=== PATIENT | female | born 1965 | race Caucasian/White ===

== ENCOUNTER → 2021-03-01 08:03 | Outpatient (BNVA) | payer MEDICAID, SELFPAY | PROVIDERS: PCP Internal Medicine; Visit Provider Nurse Practitioner Family | DX: M79.18 Myalgia, other site (principal); M54.16 Radiculopathy, lumbar region; M54.2 Cervicalgia | CPT/HCPCS: 99202 ==

== ENCOUNTER → 2021-04-04 11:14 | Outpatient (BNVA) | payer MEDICAID, SELFPAY | PROVIDERS: PCP Internal Medicine; Visit Provider Nurse Practitioner Family | DX: M54.2 Cervicalgia (principal); M53.3 Sacrococcygeal disorders, not elsewhere classified | CPT/HCPCS: 99212 ==

== ENCOUNTER 2021-05-30 06:13 | Outpatient (REF) | payer MEDICAID, SELFPAY ==
--- NOTE | ~2021-05-30 | FL_ITS ---
EXAMINATION: XR FLUOROSCOPY WITH IMAGES CLINICAL INFORMATION: M53.3 - Sacrococcygeal disorders, not elsewhere classified COMPARISON: None. TECHNIQUE: Fluoroscopy performed by Felisa Guerrero NP. Fluoroscopy time: 0.1 minutes DAP: 134 Gycm2 Images: 1 FINDINGS: There is a needle overlying the lower left sacroiliac joint. There is contrast in the overlying soft tissues and likely some early intra-articular contrast. No vascular communication. FL/FL guidance in treatment room IMPRESSION: Fluoroscopy for pain management procedure.
== END 2021-05-30 06:14 | disposition home or self-care (01) ==
LOC: HO.RADIR 06:13
PROVIDERS: Visit Provider Anesthesiology
DX: M79.18 Myalgia, other site (principal); M54.16 Radiculopathy, lumbar region; M54.2 Cervicalgia; M53.3 Sacrococcygeal disorders, not elsewhere classified
CPT/HCPCS: 27096; J3300; Q9967

== ENCOUNTER → 2021-07-12 13:23 | Outpatient (BNVA) | payer MEDICAID, SELFPAY | PROVIDERS: PCP Internal Medicine; Visit Provider Anesthesiology ==

== ENCOUNTER 2021-09-29 08:28 | Day surgery (SDC) | payer MEDICAID, SELFPAY ==
[2021-09-25 12:16] VITALS: BMI 30.2
--- NOTE | 2021-09-28 10:14 | HO.ANESPROP2 ---
Documented by User: Matilde Burris NP 09/28/21 10:15 HPI - Anesthesia Eval Consult details Narrative: 55yo F for Left Sacroiliac Joint Innervation Injection PMFSH Active Problems Active Problems: All Active Problems (Updated 09/25/21 @ 12:20 by Claudia Covarrubias, MAG) Spondylosis of cervical spine with radiculopathy (Acute) Myofascial pain (Acute) Left lumbar radiculopathy (Acute) Cervicalgia (Acute) Sacroiliac joint pain (Acute) Sacroiliitis (Acute) Past Medical History Medical History Anxiety Arthritis Asthma Depression Elevated cholesterol HTN (hypertension) Hx of breast cancer Hypothyroid Insomnia Low back pain Sacroiliitis Surgical History Surgical History History of lumpectomy of right breast Hx of hysterectomy Social History Social History Patient Tobacco Use Status: Never used Tobacco Are you DNR?: No Advance Directives: No Advance Directives Information Provided: Yes Advance Directives on File: No Patient : No Meds Allergies Allergy/AdvReac Type Severity Reaction Status Date / Time erythromycin base AdvReac Severe hives, Verified 09/29/21 08:38 stomach pain Home Medications Medication Instructions Recorded Confirmed Last Taken Type atorvastatin 20 mg tablet 20 mg PO BEDTIME 03/01/21 09/25/21 Unknown History baclofen 10 mg tablet 10 mg PO DAILY 03/01/21 09/25/21 Unknown History bupropion HCl 200 mg tablet,12 hr 200 mg PO DAILY 03/01/21 09/25/21 09/29/21 07:00 History sustained-release desvenlafaxine succinate 100 mg 100 mg PO DAILY 03/01/21 09/25/21 09/29/21 07:00 History tablet,extended release 24 hr (Pristiq) gabapentin 300 mg capsule 300 mg PO TID 03/01/21 09/25/21 Unknown History ibuprofen 800 mg tablet 800 mg PO BID 03/01/21 09/29/21 09/27/21 History losartan 50 mg tablet 50 mg PO DAILY 03/01/21 09/25/21 Unknown History trazodone 100 mg tablet 100 mg PO BEDTIME PRN 03/01/21 09/25/21 Unknown History albuterol sulfate 90 mcg/actuation INHALATION 09/25/21 Unknown History aerosol inhaler fluticasone furoate 200 1 puff INHALATION DAILY 09/25/21 09/25/21 Unknown History mcg-vilanterol 25 mcg/dose inhalation powder (Breo Ellipta) levothyroxine 175 mcg tablet 1 tab PO DAILY 09/25/21 09/25/21 Unknown History Exam Exam Date and Time: September 28, 2021 1014 Height,Weight and Vital Signs: Height 5 ft 1 in Weight 72.575 kg Assessment and Plan Assessment Anesthesia Assessment: Chart Reviewed Documented by User: Marianna Valdez MD 09/29/21 09:06 [facility], [facility] Past Medical History Medical History Anxiety Arthritis Asthma Depression Elevated cholesterol HTN (hypertension) Hx of breast cancer Hypothyroid Insomnia Low back pain Sacroiliitis Surgical History Surgical History History of lumpectomy of right breast Hx of hysterectomy History of Problems with Anesthesia: No Social History Social History Patient Tobacco Use Status: Never used Tobacco Are you DNR?: No Advance Directives: No Advance Directives Information Provided: Yes Advance Directives on File: No Patient : No Meds Allergies Allergy/AdvReac Type Severity Reaction Status Date / Time erythromycin base AdvReac Severe hives, Verified 09/29/21 08:38 stomach pain Home Medications Medication Instructions Recorded Confirmed Last Taken Type atorvastatin 20 mg tablet 20 mg PO BEDTIME 03/01/21 09/25/21 Unknown History baclofen 10 mg tablet 10 mg PO DAILY 03/01/21 09/25/21 Unknown History bupropion HCl 200 mg tablet,12 hr 200 mg PO DAILY 03/01/21 09/25/21 09/29/21 07:00 History sustained-release desvenlafaxine succinate 100 mg 100 mg PO DAILY 03/01/21 09/25/21 09/29/21 07:00 History tablet,extended release 24 hr (Pristiq) gabapentin 300 mg capsule 300 mg PO TID 03/01/21 09/25/21 Unknown History ibuprofen 800 mg tablet 800 mg PO BID 03/01/21 09/29/21 09/27/21 History losartan 50 mg tablet 50 mg PO DAILY 03/01/21 09/25/21 Unknown History trazodone 100 mg tablet 100 mg PO BEDTIME PRN 03/01/21 09/25/21 Unknown History albuterol sulfate 90 mcg/actuation INHALATION 09/25/21 Unknown History aerosol inhaler fluticasone furoate 200 1 puff INHALATION DAILY 09/25/21 09/25/21 Unknown History mcg-vilanterol 25 mcg/dose inhalation powder (Breo Ellipta) levothyroxine 175 mcg tablet 1 tab PO DAILY 09/25/21 09/25/21 Unknown History Exam Airway Mallampati Class: II TM Dist: >3cm Neck ROM: Full Loose/Missing/Broken Teeth: No Heart: RRR Lungs: CTA Assessment and Plan Assessment Anesthesia Assessment: Anesthesia Plan Discussed Final Anesthetic Review History of Problems with Anesthesia: No NPO: Yes ASA Class: II Final Preanesthetic Review: Meds/Allgs Chart Reviewed, Consent Obtained/Reviewed and Anes Risks/Benef Reviewed Patient Risk: Low Procedure Risk: Low Anesthetic Plan Anesthetic Plan: MAC: Disposition: Standard PACU
--- NOTE | ~2021-09-29 | FL_ITS ---
EXAMINATION: XR FLUOROSCOPY WITH IMAGES CLINICAL INFORMATION: Sacroiliac joint injections COMPARISON: 05/30/2021 TECHNIQUE: Fluoroscopy performed by Dr. Viraj Cagle. Fluoroscopy time: 0.3 minutes DAP: 3.13 Gycm2 Images: 1 FINDINGS: There are multiple needles identified overlying the sacrum. FL/FL guidance in OR IMPRESSION: Fluoroscopic guidance for intervention at the sacroiliac joint. Please refer to procedural report for further information.
[2021-09-29 08:49] VITALS: BP 139/85; PULSE 77; RESP 16; TEMP 37.1; O2SAT 97
--- NOTE | 2021-09-29 08:51 | PC.NURSE ---
Patient arrived with one stud earring in right ear. Per patient this earring can not be removed. Patient educated on risks of going into OR with metal on her body. Patient aware and agrees to proceed with procedure. OR nurse made aware.
[2021-09-29] MEDS: Lactated Ringers 1,000 ML 100 ML IVCONT (08:59)
--- NOTE | 2021-09-29 09:34 | MHC.SHP ---
Pre-Procedural Eval Section A Date of Service: 09/29/21 The patient is an INPATIENT: No Changes since office visit: Yes Patient answered all questions The History & Physical has been completed within 30 days and I have reviewed it.: No Section B Chief Complaint: Sacroiliitis Details of Present Illness: As above Relevant Family History (Specify if Yes): No Relevant Social History: None Present Medications: see Short Stay Collaborative assessment Medical History: No relevant PMH History of Previous Operations: No relevant previous surgery Allergies: Allergies Allergy/AdvReac Type Severity Reaction Status Date / Time erythromycin base AdvReac Severe hives, Verified 09/29/21 08:38 stomach pain Review of Systems Sugical H&P ROS: Negative: Constitution, Cardiovascular, Respiratory, Neurological, Psychiatric, Hem-Onc, Allergic/Immunologic, Gastrointestinal, Genitourinary, Musculoskeletal, Integumentary, Endocrine and Eyes/Ears/Nose/Throat Exam Surgical H&P Exam: Normal: HEENT, Normal: Heart, Normal: Lungs, Normal: Extremities, Normal: Abdomen, Normal: Skin and Normal: Neurological Plan Diagnosis/Plan: Unchanged I have reviewed the history and physical and performed a pertinent physical examination on my patient. No changes have occurred unless specified.
--- NOTE | 2021-09-29 09:41 | W.PM.OPN ---
Operative Note Operative Note Date of Service: 09/29/21 Narrative: iLza is very pleasant 55 years old female who came today into the operating room diagnostic left sacroiliac joint innervation injection. ? After obtaining informed consent patient was brought to the operating room, she was positioned prone on the OR table, [employer]hes[employer] monitors were applied and patient was sedated. ?? Time-out was performed delineating correct site, side, the nature of the procedure, patient's allergy, preoperative antibiotic.? All operating room staff was participating in OR time-out procedure. Patient's lower back was prepped with ChloraPrep and draped with utility drapes. C-arm was brought over the operating field and sq picture of patient's pelvis, sacrum and left iliac bone were demonstrated on the screen. The points of interest were delineated as connection of the superior articular process on the S1 on the left with sacral alae as well as lowest point of the sacroiliac joint on the left on the medial sacral side. The other point of interest were delineated as all the points in between the above-mentioned 2 points. The projections of the points of interest to the skin were was injected with small amount of lidocaine 2% mixed with bupivacaine 0.5%. After that 4 22 gauge 3-1/2 inch needles were sequentially driven to cover all the points of interest as above. When needles gently contacted the bone small amount of the bupivacaine 0.5% no more than 1 cc was injected into each needle position. Upon completion of the injections needles were removed sterile Band-Aids were applied. Patient was tolerated procedure well she was taking outside of the operating room to recovery room. She recovered uneventfully.
--- NOTE | 2021-09-29 10:08 | P.BOP_ITS ---
Brief Operative Note Date of Service: 09/29/21 Pre-op diagnosis: Sacroiliitis Post-op diagnosis: same Procedure: Diagnostic sacroiliac joint innervation injection left Implants: In a Surgeon: Viraj Cagle MD Anesthesia: MAC Was an Porcelain Slusher used for this Procedure?: No Estimated blood loss (mL): 0 Pathology: none sent Condition: stable Disposition: PACU
[2021-09-29 10:11] VITALS: BP 98/68; PULSE 73; RESP 18; TEMP 36.3; O2SAT 100
[2021-09-29 10:25] VITALS: BP 110/77; PULSE 73; RESP 18; O2SAT 96
[2021-09-29 10:40] VITALS: BP 132/85; PULSE 69; RESP 16; TEMP 36.3; O2SAT 100
[2021-09-29 10:52] VITALS: BP 141/84; PULSE 69; RESP 16; O2SAT 100
== END 2021-09-29 11:18 | disposition home or self-care (01) ==
PROVIDERS: PCP Internal Medicine; Visit Provider Anesthesiology
PROC: (CPT 27096; principal; 2021-09-29 10:00)
DX: M46.1 Sacroiliitis, not elsewhere classified (principal); M53.3 Sacrococcygeal disorders, not elsewhere classified
CPT/HCPCS: 27096; J2250; J3010; J3300

== ENCOUNTER → 2021-10-04 13:25 | Outpatient (BNVA) | payer MEDICAID, SELFPAY | PROVIDERS: PCP Internal Medicine; Visit Provider Anesthesiology ==

== ENCOUNTER 2021-11-29 10:00 | Outpatient (RCR) | payer OTHER, SELFPAY ==
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
--- NOTE | 2021-10-04 23:46 | HO.TMSDAILY2 ---
TMS Daily Progress Note Daily TMS Progress Note Date of Service: 10/04/21 Week #: 1 Treatment #(11-26): 1 PHQ-9 Pre-Treatment (11-23): 21 PHQ-9 Most Recent (11-23): 21 Reviewed: TMS Mapping/Re-mapping completed Verification: I have reviewed the TMS Financial Services Professional Note and agree with the contents. The patient remains a candidate to continue TMS treatment per protocol. Assessment and Plan (1) Major depressive disorder, recurrent severe without psychotic features: Status: Acute initial mapping completed needed inc MT
--- NOTE | 2021-10-09 22:36 | P.PNPS_ITS ---
TMS Daily Progress Note Daily TMS Progress Note Date of Service: 10/06/21 Week #: 1 Treatment #(11-26): 3 PHQ-9 Pre-Treatment (11-23): 21 PHQ-9 Most Recent (11-23): 21 Reviewed: TMS Tech Note Reviewed Verification: I have reviewed the TMS Jewelry Finisher Note and agree with the contents. The patient remains a candidate to continue TMS treatment per pro tocol.
--- NOTE | 2021-10-09 22:56 | HO.TMSDAILY2 ---
TMS Daily Progress Note Daily TMS Progress Note Date of Service: 10/09/21 Week #: 1 Treatment #(11-26): 4 PHQ-9 Pre-Treatment (11-23): 21 PHQ-9 Most Recent (11-23): 21 Reviewed: TMS Tech Note Reviewed Verification: I have reviewed the TMS Software Tester Note and agree with the contents. The patient remains a candidate to continue TMS treatment per protocol.
--- NOTE | 2021-10-10 22:32 | HO.TMSDAILY2 ---
TMS Daily Progress Note Daily TMS Progress Note Date of Service: 10/10/21 Week #: 1 Treatment #(11-26): 5 PHQ-9 Pre-Treatment (11-23): 21 PHQ-9 Most Recent (11-23): 21 Reviewed: TMS Tech Note Reviewed Verification: I have reviewed the TMS Melt House Centrifugal Operator Note and agree with the contents. The patient remains a candidate to continue TMS treatment per protocol.
--- NOTE | 2021-10-11 23:04 | HO.TMSDAILY2 ---
TMS Daily Progress Note Daily TMS Progress Note Date of Service: 10/11/21 Week #: 2 Treatment #(11-26): 6 PHQ-9 Pre-Treatment (11-23): 21 PHQ-9 Most Recent (11-23): 21 Reviewed: TMS Tech Note Reviewed Verification: I have reviewed the TMS Engraver Flatware Note and agree with the contents. The patient remains a candidate to continue TMS treatment per protocol.
--- NOTE | 2021-10-12 23:06 | P.PNPS_ITS ---
TMS Daily Progress Note Daily TMS Progress Note Date of Service: 10/12/21 Week #: 2 Treatment #(11-26): 7 PHQ-9 Pre-Treatment (11-23): 21 PHQ-9 Most Recent (11-23): 21 Reviewed: TMS Mapping/Re-mapping completed Verification: I have reviewed the TMS Social Media Coordinator Note and agree with the contents. The patient remains a candidate to continue TMS treatment per protocol. Assessment and Plan (1) Major depressive disorder, recurrent severe without psychotic features: Status: Acute remapping and mt completed much more tolerable
--- NOTE | 2021-10-16 17:17 | HO.TMSDAILY2 ---
TMS Daily Progress Note Daily TMS Progress Note Date of Service: 10/13/21 Week #: 2 Treatment #(11-26): 8 PHQ-9 Pre-Treatment (11-23): 21 PHQ-9 Most Recent (11-23): 21 Reviewed: TMS Tech Note Reviewed Verification: I have reviewed the TMS Career Coordinator Note and agree with the contents. The patient remains a candidate to continue TMS treatment per protocol. Assessment and Plan (1) Major depressive disorder, recurrent severe without psychotic features: Status: Acute cont post remap
--- NOTE | 2021-10-16 17:19 | HO.TMSDAILY2 ---
TMS Daily Progress Note Daily TMS Progress Note Date of Service: 10/16/21 Week #: 2 Treatment #(11-26): 10 PHQ-9 Pre-Treatment (11-23): 21 PHQ-9 Most Recent (11-23): 21 Reviewed: TMS Tech Note Reviewed Verification: I have reviewed the TMS Strategic Alliances Manager Note and agree with the contents. The patient remains a candidate to continue TMS treatment per protocol. Assessment and Plan (1) Major depressive disorder, recurrent severe without psychotic features: Status: Acute cont post remap
--- NOTE | 2021-10-17 17:05 | P.PNPS_ITS ---
TMS Daily Progress Note Daily TMS Progress Note Date of Service: 10/17/21 Week #: 3 Treatment #(11-26): 11 PHQ-9 Pre-Treatment (11-23): 21 PHQ-9 Most Recent (11-23): 21 Reviewed: TMS Tech Note Reviewed Verification: I have reviewed the TMS Lead Level Designer Note and agree with the contents. The patient remains a candidate to continue TMS treatment per pr otocol. Assessment and Plan (1) Major depressive disorder, recurrent severe without psychotic features: Status: Acute continue tms evaluate response side effects
--- NOTE | 2021-10-18 23:07 | HO.TMSDAILY2 ---
TMS Daily Progress Note Daily TMS Progress Note Date of Service: 10/18/21 Week #: 3 Treatment #(11-26): 11 PHQ-9 Pre-Treatment (11-23): 21 PHQ-9 Most Recent (11-23): 21 Reviewed: TMS Tech Note Reviewed Verification: I have reviewed the TMS Salesperson Men'S Furnishings Note and agree with the contents. The patient remains a candidate to continue TMS treatment per protocol. Assessment and Plan (1) Major depressive disorder, recurrent severe without psychotic features: Status: Acute continue tms evaluate response side effects
--- NOTE | 2021-10-19 22:42 | P.PNPS_ITS ---
TMS Daily Progress Note Daily TMS Progress Note Date of Service: 10/19/21 Week #: 3 Treatment #(11-26): 12 PHQ-9 Pre-Treatment (11-23): 21 PHQ-9 Most Recent (11-23): 21 Reviewed: TMS Tech Note Reviewed Verification: I have reviewed the TMS Software Intern Note and agree with the contents. The patient remains a candidate to continue TMS treatment per pr otocol. Assessment and Plan (1) Major depressive disorder, recurrent severe without psychotic features: Status: Acute continue tms evaluate response side effects
--- NOTE | 2021-10-23 22:43 | P.PNPS_ITS ---
TMS Daily Progress Note Daily TMS Progress Note Date of Service: 10/23/21 Week #: 3 Treatment #(11-26): 13 PHQ-9 Pre-Treatment (11-23): 21 PHQ-9 Most Recent (11-23): 21 Reviewed: TMS Tech Note Reviewed Verification: I have reviewed the TMS Medical Secretary Receptionist Note and agree with the contents. The patient remains a candidate to continue TMS treatment per pr otocol.
--- NOTE | 2021-10-24 22:16 | P.PNPS_ITS ---
TMS Daily Progress Note Daily TMS Progress Note Date of Service: 10/25/21 Week #: 3 Treatment #(11-26): 14 PHQ-9 Pre-Treatment (11-23): 21 PHQ-9 Most Recent (11-23): 21 Reviewed: TMS Tech Note Reviewed Verification: I have reviewed the TMS Hoist Operator Note and agree with the contents. The patient remains a candidate to continue TMS treatment per pr otocol. Assessment and Plan (1) Major depressive disorder, recurrent severe without psychotic features: Status: Acute continue tms evaluate response check for side effects
--- NOTE | 2021-10-26 22:07 | HO.TMSDAILY2 ---
TMS Daily Progress Note Daily TMS Progress Note Date of Service: 10/26/21 Week #: 4 Treatment #(11-26): 16 PHQ-9 Pre-Treatment (11-23): 21 PHQ-9 Most Recent (11-23): 21 Reviewed: TMS Tech Note Reviewed Verification: I have reviewed the TMS Flatbed Company Driver Note and agree with the contents. The patient remains a candidate to continue TMS treatment per protocol.
--- NOTE | 2021-10-31 23:56 | HO.TMSDAILY2 ---
TMS Daily Progress Note Daily TMS Progress Note Date of Service: 10/30/21 Week #: 4 Treatment #(11-26): 17 PHQ-9 Pre-Treatment (11-23): 21 PHQ-9 Most Recent (11-23): 21 Reviewed: TMS Tech Note Reviewed Verification: I have reviewed the TMS Gas Cutting Machine Operator Note and agree with the contents. The patient remains a candidate to continue TMS treatment per protocol.
--- NOTE | 2021-11-02 18:00 | P.PNPS_ITS ---
TMS Daily Progress Note Daily TMS Progress Note Date of Service: 11/02/21 Week #: 4 Treatment #(11-26): 19 PHQ-9 Pre-Treatment (11-23): 21 PHQ-9 Most Recent (11-23): 21 Reviewed: TMS Tech Note Reviewed Verification: I have reviewed the TMS Under Sheriff Note and agree with the contents. The patient remains a candidate to continue TMS treatment per pr otocol.
--- NOTE | 2021-11-06 21:49 | P.PNPS_ITS ---
TMS Daily Progress Note Daily TMS Progress Note Date of Service: 11/06/21 Week #: 4 Treatment #(11-26): 20 PHQ-9 Pre-Treatment (11-23): 21 PHQ-9 Most Recent (11-23): 21 Reviewed: TMS Tech Note Reviewed Verification: I have reviewed the TMS Operating Room Technologist Note and agree with the contents. The patient remains a candidate to continue TMS treatment per pr otocol. Assessment and Plan (1) Major depressive disorder, recurrent severe without psychotic features: Status: Acute continue tms evaluate response consider remapping again if no change
--- NOTE | 2021-11-07 21:50 | HO.TMSDAILY2 ---
TMS Daily Progress Note Daily TMS Progress Note Date of Service: 11/07/21 Week #: 5 Treatment #(11-26): 21 PHQ-9 Pre-Treatment (11-23): 21 PHQ-9 Most Recent (11-23): 21 Reviewed: TMS Tech Note Reviewed Verification: I have reviewed the TMS Gyroscopic Instrument Mechanic Note and agree with the contents. The patient remains a candidate to continue TMS treatment per protocol. Assessment and Plan (1) Major depressive disorder, recurrent severe without psychotic features: Status: Acute continue tms evaluate response consider remapping again if no change
--- NOTE | 2021-11-08 21:52 | P.PNPS_ITS ---
TMS Daily Progress Note Daily TMS Progress Note Date of Service: 11/08/21 Week #: 5 Treatment #(11-26): 22 PHQ-9 Pre-Treatment (11-23): 21 PHQ-9 Most Recent (11-23): 21 Reviewed: TMS Tech Note Reviewed Verification: I have reviewed the TMS Compression Molding Machine Operator Note and agree with the contents. The patient remains a candidate to continue TMS treatment per pr otocol.
--- NOTE | 2021-11-14 13:57 | P.PNPS_ITS ---
TMS Daily Progress Note Daily TMS Progress Note Date of Service: 11/14/21 Week #: 5 Treatment #(11-26): 25 PHQ-9 Pre-Treatment (11-23): 21 PHQ-9 Most Recent (11-23): 21 Reviewed: TMS Tech Note Reviewed Verification: I have reviewed the TMS Rent And Housing Investigator Note and agree with the contents. The patient remains a candidate to continue TMS treatment per p karli.
--- NOTE | 2021-11-15 13:18 | P.PNPS_ITS ---
TMS Daily Progress Note Daily TMS Progress Note Date of Service: 11/15/21 Week #: 6 Treatment #(11-26): 26 PHQ-9 Pre-Treatment (11-23): 21 PHQ-9 Most Recent (11-23): 21 Reviewed: TMS Tech Note Reviewed Verification: I have reviewed the TMS Drop Board Worker Note and agree with the contents. The patient remains a candidate to continue TMS treatment per p karli.
--- NOTE | 2021-11-16 13:32 | P.PNPS_ITS ---
TMS Daily Progress Note Daily TMS Progress Note Date of Service: 11/16/21 Week #: 6 Treatment #(11-26): 27 PHQ-9 Pre-Treatment (11-23): 21 PHQ-9 Most Recent (11-23): 21 Reviewed: TMS Tech Note Reviewed Verification: I have reviewed the TMS Pointer Machine Operator Note and agree with the contents. The patient remains a candidate to continue TMS treatment per p karli.
--- NOTE | 2021-11-20 16:44 | HO.TMSDAILY2 ---
TMS Daily Progress Note Daily TMS Progress Note Date of Service: 11/20/21 Week #: 6 Treatment #(11-26): 29 PHQ-9 Pre-Treatment (11-23): 21 PHQ-9 Most Recent (11-23): 21 Reviewed: TMS Tech Note Reviewed Verification: I have reviewed the TMS Bunk Assembler Note and agree with the contents. The patient remains a candidate to continue TMS treatment per protocol. Assessment and Plan (1) Major depressive disorder, recurrent severe without psychotic features: Status: Acute continue tms evaluate response consider php referral
--- NOTE | 2021-11-21 11:38 | HO.TMSDAILY2 ---
TMS Daily Progress Note Daily TMS Progress Note Date of Service: 11/17/21 Week #: 6 Treatment #(11-26): 28 PHQ-9 Pre-Treatment (11-23): 21 PHQ-9 Most Recent (11-23): 21 Reviewed: TMS Tech Note Reviewed Verification: I have reviewed the TMS Patient Financial Specialist Note and agree with the contents. The patient remains a candidate to continue TMS treatment per protocol.
--- NOTE | 2021-11-21 22:35 | HO.TMSDAILY2 ---
TMS Daily Progress Note Daily TMS Progress Note Date of Service: 11/21/21 Week #: 6 Treatment #(11-26): 30 PHQ-9 Pre-Treatment (11-23): 21 PHQ-9 Most Recent (11-23): 21 Reviewed: TMS Tech Note Reviewed Verification: I have reviewed the TMS Rock Crusher Operator Note and agree with the contents. The patient remains a candidate to continue TMS treatment per protocol.
--- NOTE | 2021-11-22 22:38 | HO.TMSDAILY2 ---
TMS Daily Progress Note Daily TMS Progress Note Date of Service: 11/22/21 Week #: 7 Treatment #(11-26): 31 PHQ-9 Pre-Treatment (11-23): 21 PHQ-9 Most Recent (11-23): 21 Reviewed: TMS Tech Note Reviewed Verification: I have reviewed the TMS Research Project Manager Note and agree with the contents. The patient remains a candidate to continue TMS treatment per protocol. Assessment and Plan (1) Major depressive disorder, recurrent severe without psychotic features: Status: Acute Plan continue tms evaluate response consider [facility] referral
--- NOTE | 2021-11-23 17:54 | HO.TMSDAILY2 ---
TMS Daily Progress Note Daily TMS Progress Note Date of Service: 11/23/21 Week #: 6 Treatment #(11-26): 31 PHQ-9 Pre-Treatment (11-23): 21 PHQ-9 Most Recent (11-23): 21 Reviewed: TMS Tech Note Reviewed Verification: I have reviewed the TMS Garbage Truck Helper Note and agree with the contents. The patient remains a candidate to continue TMS treatment per protocol.
--- NOTE | 2021-11-27 23:23 | HO.TMSDAILY2 ---
TMS Daily Progress Note Daily TMS Progress Note Date of Service: 11/27/21 Week #: 7 Treatment #(11-26): 33 PHQ-9 Pre-Treatment (11-23): 21 PHQ-9 Most Recent (11-23): 21 Reviewed: TMS Tech Note Reviewed Verification: I have reviewed the TMS Grain Buyer Note and agree with the contents. The patient remains a candidate to continue TMS treatment per protocol. Assessment and Plan (1) Major depressive disorder, recurrent severe without psychotic features: Status: Acute Plan no improvement noted
--- NOTE | 2021-11-28 17:51 | HO.TMSDAILY2 ---
TMS Daily Progress Note Daily TMS Progress Note Date of Service: 11/28/21 Week #: 8 Treatment #(11-26): 35 PHQ-9 Pre-Treatment (11-23): 21 PHQ-9 Most Recent (11-23): 21 Reviewed: TMS Tech Note Reviewed Verification: I have reviewed the TMS Manufacturing Intern Note and agree with the contents. The patient remains a candidate to continue TMS treatment per protocol. Assessment and Plan (1) Major depressive disorder, recurrent severe without psychotic features: Status: Acute Plan consider d/c recommendations
--- NOTE | 2021-11-29 23:18 | HO.TMSDAILY2 ---
TMS Daily Progress Note Daily TMS Progress Note Date of Service: 11/29/21 Week #: 8 Treatment #(11-26): 36 PHQ-9 Pre-Treatment (11-23): 21 PHQ-9 Most Recent (11-23): 21 Reviewed: TMS Tech Note Reviewed Verification: I have reviewed the TMS Elastic Assembler Note and agree with the contents. The patient remains a candidate to continue TMS treatment per protocol. Assessment and Plan (1) Major depressive disorder, recurrent severe without psychotic features: Status: Acute Plan consider d/c recommendations including php ? extend tx
== END 2021-12-01 12:14 | disposition home or self-care (01) ==
LOC: HO.PTMS 10:00
PROVIDERS: Visit Provider Psychiatry & Neurology Psychiatry
DX: F33.2 Major depressive disorder, recurrent severe without psychotic features (principal)
CPT/HCPCS: 90867; 90868; 90869

== ENCOUNTER 2021-12-15 09:59 | Day surgery (SDC) | payer MEDICAID, SELFPAY ==
[2021-12-11 12:59] VITALS: BMI 29.8
--- NOTE | 2021-12-14 13:05 | HO.ANESPROP2 ---
Documented by User: Matilde Burris NP 12/14/21 13:07 HPI - Anesthesia Eval Consult details Narrative: 56yo F for Left S.I. Joint Fusion s/p SI joint injection 09/2021 with TIVA PMFSH Active Problems Active Problems: All Active Problems (Updated 10/04/21 @ 12:59 by Phi Orourke MD) Major depressive disorder, recurrent severe without psychotic features (Acute) Spondylosis of cervical spine with radiculopathy (Acute) Myofascial pain (Acute) Left lumbar radiculopathy (Acute) Cervicalgia (Acute) Sacroiliac joint pain (Acute) Sacroiliitis (Acute) Past Medical History Medical History (Updated 10/04/21 @ 12:59 by Phi Orourke MD) Anxiety Arthritis Asthma Depression Elevated cholesterol HTN (hypertension) Hx of breast cancer Hypothyroid Insomnia Low back pain Major depressive disorder, recurrent severe without psychotic features Sacroiliitis Surgical History Surgical History History of lumpectomy of right breast Hx of hysterectomy History of Problems with Anesthesia: No Social History Social History Patient Tobacco Use Status: Never used Tobacco Use of substances other than those prescribed or required for medical reasons: No Are you DNR?: No Advance Directives: No Advance Directives Information Provided: Yes Advance Directives on File: No Meds Allergies Allergy/AdvReac Type Severity Reaction Status Date / Time erythromycin base AdvReac Severe hives, Verified 12/11/21 12:37 stomach pain Home Medications Medication Instructions Recorded Confirmed Last Taken Type atorvastatin 20 mg tablet 20 mg PO BEDTIME 03/01/21 12/11/21 Unknown History baclofen 10 mg tablet 10 mg PO DAILY 03/01/21 12/11/21 Unknown History bupropion HCl 200 mg tablet,12 hr 200 mg PO DAILY 03/01/21 12/11/21 12/15/21 History sustained-release desvenlafaxine succinate 100 mg 100 mg PO DAILY 03/01/21 12/11/21 09/29/21 07:00 History tablet,extended release 24 hr (Pristiq) gabapentin 300 mg capsule 300 mg PO TID 03/01/21 12/11/21 12/15/21 History ibuprofen 800 mg tablet 800 mg PO BID PRN 03/01/21 12/11/21 09/27/21 History losartan 50 mg tablet 50 mg PO DAILY 03/01/21 12/11/21 Unknown History trazodone 100 mg tablet 100 mg PO BEDTIME PRN 03/01/21 12/11/21 Unknown History albuterol sulfate 90 mcg/actuation 2 inh INHALATION Q4-6H PRN 09/25/21 12/11/21 12/15/21 History aerosol inhaler fluticasone furoate 200 1 puff INHALATION DAILY 09/25/21 12/11/21 12/15/21 History mcg-vilanterol 25 mcg/dose inhalation powder (Breo Ellipta) levothyroxine 175 mcg tablet 1 tab PO DAILY 09/25/21 12/11/21 12/15/21 History Exam Exam Date and Time: December 14, 2021 1305 Height,Weight and Vital Signs: Height 5 ft 1 in Weight 71.668 kg Assessment and Plan Assessment Anesthesia Assessment: Chart Reviewed Final Anesthetic Review History of Problems with Anesthesia: No Documented by User: Mary Birmingham MD 12/15/21 12:10 PMFSH Past Medical History Medical History (Updated 10/04/21 @ 12:59 by Phi Orourke MD) Anxiety Arthritis Asthma Depression Elevated cholesterol HTN (hypertension) Hx of breast cancer Hypothyroid Insomnia Low back pain Major depressive disorder, recurrent severe without psychotic features Sacroiliitis Family History Family history of problems with anesthesia: No Surgical History Surgical History History of lumpectomy of right breast Hx of hysterectomy Social History Social History Patient Tobacco Use Status: Never used Tobacco Use of substances other than those prescribed or required for medical reasons: No Are you DNR?: No Advance Directives: No Advance Directives Information Provided: Yes Advance Directives on File: No Meds Allergies Allergy/AdvReac Type Severity Reaction Status Date / Time erythromycin base AdvReac Severe hives, Verified 12/11/21 12:37 stomach pain Home Medications Medication Instructions Recorded Confirmed Last Taken Type atorvastatin 20 mg tablet 20 mg PO BEDTIME 03/01/21 12/11/21 Unknown History baclofen 10 mg tablet 10 mg PO DAILY 03/01/21 12/11/21 Unknown History bupropion HCl 200 mg tablet,12 hr 200 mg PO DAILY 03/01/21 12/11/21 12/15/21 History sustained-release desvenlafaxine succinate 100 mg 100 mg PO DAILY 03/01/21 12/11/21 09/29/21 07:00 History tablet,extended release 24 hr (Pristiq) gabapentin 300 mg capsule 300 mg PO TID 03/01/21 12/11/21 12/15/21 History ibuprofen 800 mg tablet 800 mg PO BID PRN 03/01/21 12/11/21 09/27/21 History losartan 50 mg tablet 50 mg PO DAILY 03/01/21 12/11/21 Unknown History trazodone 100 mg tablet 100 mg PO BEDTIME PRN 03/01/21 12/11/21 Unknown History albuterol sulfate 90 mcg/actuation 2 inh INHALATION Q4-6H PRN 09/25/21 12/11/21 12/15/21 History aerosol inhaler fluticasone furoate 200 1 puff INHALATION DAILY 09/25/21 12/11/21 12/15/21 History mcg-vilanterol 25 mcg/dose inhalation powder (Breo Ellipta) levothyroxine 175 mcg tablet 1 tab PO DAILY 09/25/21 12/11/21 12/15/21 History Exam Airway Mallampati Class: II TM Dist: >3cm Neck ROM: Full Assessment and Plan Assessment Anesthesia Assessment: Anesthesia Plan Discussed Final Anesthetic Review Family History of Problems with Anesthesia: No NPO: Yes ASA Class: II Final Preanesthetic Review: No Changes in Pt Med Stat, Meds/Allgs Chart Reviewed, Consent Obtained/Reviewed and Anes Risks/Benef Reviewed Patient Risk: Intermediate Procedure Risk: Low Anesthetic Plan Anesthetic Plan: GA Disposition: Standard PACU
[2021-12-15] VITALS (9 sets, daily range): BP systolic 110–146; BP diastolic 67–96; PULSE 71–92; RESP 12–18; TEMP 36.6–36.8; O2SAT 95–98
--- NOTE | ~2021-12-15 | FL_ITS ---
EXAMINATION: XR FLUOROSCOPY WITH IMAGES CLINICAL INFORMATION: Left sacroiliac joint fusion COMPARISON: None. TECHNIQUE: Fluoroscopy performed by Dr. Viraj Cagle. Fluoroscopy time: 0.5 minutes DAP: 8.01 Gycm2 Images: 2 FINDINGS: There is a radiopaque instrument overlying the left sacroiliac joint. FL/FL guidance in OR IMPRESSION: Fluoroscopic guidance over the left sacroiliac joint. Please refer to procedural report for further information.
--- NOTE | 2021-12-15 07:35 | MHC.SHP ---
Pre-Procedural Eval Section A Date of Service: 12/15/21 Changes since office visit: Yes Patient answered all questions The History & Physical has been completed within 30 days and I have reviewed it.: No Section B Chief Complaint: sacroiliitis Details of Present Illness: as above Relevant Family History (Specify if Yes): No Relevant Social History: None Present Medications: see Short Stay Collaborative assessment Medical History: No relevant PMH History of Previous Operations: No relevant previous surgery Allergies: Allergies Allergy/AdvReac Type Severity Reaction Status Date / Time erythromycin base AdvReac Severe hives, Verified 12/11/21 12:37 stomach pain Review of Systems Sugical H&P ROS: Negative: Constitution, Cardiovascular, Respiratory, Neurological, Psychiatric, Hem-Onc, Allergic/Immunologic, Gastrointestinal, Genitourinary, Musculoskeletal, Integumentary, Endocrine and Eyes/Ears/Nose/Throat Exam Surgical H&P Exam: Normal: HEENT, Normal: Heart, Normal: Lungs, Normal: Extremities, Normal: Abdomen, Normal: Skin and Normal: Neurological Plan Diagnosis/Plan: Unchanged I have reviewed the history and physical and performed a pertinent physical examination on my patient. No changes have occurred unless specified.
--- NOTE | 2021-12-15 07:47 | P.OP_ITS ---
Operative Note Operative Note Date of Service: 12/15/21 Narrative: ??Sacroiliac joint stabilisation procedure. posterior sacroiliac joint fusion using LINQ SI joint stabilization system with C-arm fluoroscopy for guidance.? Ms Dover is very pleasant 56 years old female who is suffering left sacroiliac joint insufficiency and sacroiliitis on the left.??She failed conservative management of sacroiliitis.??She came today to receive the procedures as above.??The risks and benefits including bleeding, infection, peripheral nerve damage, failure to reduce the pain were explained to the patient.?The patient came to the operating room, she was positioned on the stretcher supine, [place] [employer] monitors were applied and patient was administered with general endotracheal anesthesia.??After that the patient was transferred on operating table and positioned prone with all pressure points protected. The patient was administered 2 grams cefazolin IV approximately 25 minutes before the start of the procedure.? Time-out was performed delineating correct site, side, and nature of the procedure, name and date of of the patient, risk of fire, need for DVT prophylaxis, need for antibiotics.? The patient was transferred?on?radiolucent table. All pressure points were protected again. Lower back and bilateral buttocks were prepped with ChloraPrep and draped with full body drape. 3. 5 cm posterior midline incision over the projection of the Left S1 foramina was performed.? Soft tissue dissection done to sacroiliac joint and thorough blind dissection was made in the direction of the left?sacroiliac joint.? K-wire pin was inserted into the sacroiliac joint and guiding instrument was inserted into the joint using the pin as a guide and advanced into the joint on the intermittent anterior posterior and lateral views.??? After that pin was removed and rasping device was inserted to broach and rasp sacroiliac joint.? Once joint was prepared and inserted the structural allograft implant was hammered into the joint . It was packed with ortho biologics in and around the implant to provide better opportunity? for bones fusion.? The position of the allograft was confirmed radiographically.? The wound was irrigated, hemostasis was achieved wound was closed in 2 layers.? Surgery was concluded by performing standard suture closing technique:? 0 Polysorb suture was used to close the wound and nylon 3-0 suture was used to approximate the levels of the skin.? Skin glue was applied to the skin edges.? Sterile?dressing was applied with bacitracin ointment .? The patient tolerated procedure well she was awaken and taken outside of the operating room to PACU where she recovered uneventfully. She went home without immediate complications. She will be wearing an SI joint fixation belt for the 10 weeks after the procedure.
[2021-12-15] MEDS: Lactated Ringers 1,000 ML 100 ML IVCONT (11:44)
--- NOTE | 2021-12-15 13:53 | PM.OP ---
Brief Operative Note Date of Service: 12/15/21 Pre-op diagnosis: Sacroiliitis Post-op diagnosis: same Procedure: ??Sacroiliac joint stabilisation procedure. posterior sacroiliac joint fusion using LINQ SI joint stabilization system with C-arm fluoroscopy for guidance. Implants: Lyophilized cadaver bone covered with biological Gell stimulating bone growth. Surgeon: Viraj Cagle MD Anesthesia: GETA Was an Sap Security Consultant used for this Procedure?: No Estimated blood loss (mL): 30 IV fluids (mL): 1,000 Pathology: none sent Condition: stable Disposition: PACU
[2021-12-15] MEDS: fentaNYL citrate/PF 100 MCG/2 ML VIAL 50 MCG IVPUSH (14:31)
[2021-12-15] MEDS: oxyCODONE HCl Immed Release 5 MG TABLET PO (14:31)
== END 2021-12-15 15:22 | disposition home or self-care (01) ==
PROVIDERS: PCP Internal Medicine; Visit Provider Anesthesiology
PROC: (CPT 27279; principal; 2021-12-15 11:50)
DX: M46.1 Sacroiliitis, not elsewhere classified (principal); M53.3 Sacrococcygeal disorders, not elsewhere classified; M54.50 Low back pain, unspecified; M79.18 Myalgia, other site; M54.16 Radiculopathy, lumbar region; M54.2 Cervicalgia; F33.2 Major depressive disorder, recurrent severe without psychotic features; I10 Essential (primary) hypertension; J45.909 Unspecified asthma, uncomplicated; Z79.899 Other long term (current) drug therapy; Z79.1 Long term (current) use of non-steroidal anti-inflammatories (NSAID)
CPT/HCPCS: 27279; C1713; J0690; J1100; J2250; J2405; J2765; J3010; J3370

== ENCOUNTER → 2021-12-25 11:30 | Outpatient (BNVA) | payer MEDICAID, SELFPAY | PROVIDERS: PCP Internal Medicine; Visit Provider Anesthesiology | DX: M79.18 Myalgia, other site (principal); M54.16 Radiculopathy, lumbar region; M54.2 Cervicalgia; M53.3 Sacrococcygeal disorders, not elsewhere classified; M46.1 Sacroiliitis, not elsewhere classified | CPT/HCPCS: 99212 ==

== ENCOUNTER → 2022-03-15 09:02 | Outpatient (BNVA) | payer MEDICAID, SELFPAY | PROVIDERS: PCP Internal Medicine; Visit Provider Anesthesiology | DX: M53.3 Sacrococcygeal disorders, not elsewhere classified (principal); M79.18 Myalgia, other site; M46.1 Sacroiliitis, not elsewhere classified; M47.816 Spondylosis without myelopathy or radiculopathy, lumbar region | CPT/HCPCS: 99212 ==

== ENCOUNTER 2022-05-01 05:57 | Outpatient (REF) | payer MEDICAID, SELFPAY ==
--- NOTE | ~2022-05-01 | FL_ITS ---
EXAMINATION: XR FLUOROSCOPY WITH IMAGES CLINICAL INFORMATION: M53.3 - Sacrococcygeal disorders, not elsewhere classified COMPARISON: Fluoroscopic spot views 12/15/2021, 09/29/2021 TECHNIQUE: Fluoroscopy performed by Dr. Viraj Cagle. Fluoroscopy time: 0.1 minutes. DAP: 1.15 Gycm2. Images: 1. FINDINGS: Spinal needle overlies mid right SI joint. There is contrast in the periarticular soft tissues with probable early intra-articular contrast. No vasculature communication appreciated. FL/FL guidance in treatment room IMPRESSION: Fluoroscopy for pain management procedure.
== END 2022-05-01 05:58 | disposition home or self-care (01) ==
LOC: HO.RADIR 05:57
PROVIDERS: Visit Provider Anesthesiology
DX: M53.3 Sacrococcygeal disorders, not elsewhere classified (principal); M79.18 Myalgia, other site; M46.1 Sacroiliitis, not elsewhere classified; M47.816 Spondylosis without myelopathy or radiculopathy, lumbar region; M54.16 Radiculopathy, lumbar region; M54.2 Cervicalgia
CPT/HCPCS: 27096; Q9967

== ENCOUNTER → 2022-05-03 08:09 | Outpatient (BNVA) | payer MEDICAID, SELFPAY | PROVIDERS: PCP Internal Medicine; Visit Provider Anesthesiology | DX: M46.1 Sacroiliitis, not elsewhere classified (principal); M79.18 Myalgia, other site; M53.3 Sacrococcygeal disorders, not elsewhere classified; M47.26 Other spondylosis with radiculopathy, lumbar region; M54.2 Cervicalgia | CPT/HCPCS: 99212 ==

== ENCOUNTER → 2022-08-15 08:41 | Outpatient (BNVA) | payer MEDICARE, MEDICAID, SELFPAY | PROVIDERS: PCP Internal Medicine; Visit Provider Anesthesiology | DX: M53.3 Sacrococcygeal disorders, not elsewhere classified (principal); M46.1 Sacroiliitis, not elsewhere classified; M79.18 Myalgia, other site; M47.816 Spondylosis without myelopathy or radiculopathy, lumbar region; M54.16 Radiculopathy, lumbar region; M54.2 Cervicalgia | CPT/HCPCS: 99212 ==

== ENCOUNTER 2022-08-24 10:18 | Outpatient (REF) | payer MEDICARE, MEDICAID, SELFPAY ==
--- NOTE | ~2022-08-24 | CT_ITS ---
EXAMINATION: CT PELVIS WITHOUT CONTRAST CLINICAL INFORMATION: Sacrococcygeal disorder COMPARISON: Previous fluoroscopy exams from earlier this year TECHNIQUE: Helical scanning was performed with submillimeter collimation through the pelvis. Sagittal and coronal multiplanar 2-D reconstructions were obtained. This CT examination was performed using dose optimization techniques as appropriate, variously including the following: *Automated exposure control *Adjustment of mA and/or kV according to patient size (this includes techniques or standardized protocols for targeted exams where dose is matched to indication/reason for exam; i.e. extremities or head) *Use of iterative reconstruction technique DLP: 380 mGy-cm FINDINGS: There is a rectangular biomedical equipment technician device in the left posterior superior sacroiliac joint. No fracture, dislocation or bone lesion. No surrounding fluid collection. Visualized bowel is unremarkable. The appendix is unremarkable. The bladder, uterus and adnexa are unremarkable. No ascites or adenopathy. No inguinal hernia. There is diastasis of the rectus muscles. CT/CT pelvis wo IV con IMPRESSION: application security engineer in the left posterior superior sacroiliac joint.
== END 2022-08-24 10:19 | disposition home or self-care (01) ==
LOC: HO.CT 10:18
PROVIDERS: PCP Internal Medicine; Visit Provider Anesthesiology
DX: M46.1 Sacroiliitis, not elsewhere classified (principal); M53.3 Sacrococcygeal disorders, not elsewhere classified
CPT/HCPCS: 72192

== ENCOUNTER → 2022-08-29 08:51 | Outpatient (BNVA) | payer MEDICARE, MEDICAID, SELFPAY | PROVIDERS: PCP Internal Medicine; Visit Provider Orthopaedic Surgery | DX: G56.02 Carpal tunnel syndrome, left upper limb (principal); R20.0 Anesthesia of skin; R20.2 Paresthesia of skin | CPT/HCPCS: 99202 ==

== ENCOUNTER 2022-09-11 06:04 | Outpatient (REF) | payer MEDICARE, MEDICAID, SELFPAY ==
--- NOTE | ~2022-09-11 | FL_ITS ---
EXAMINATION: XR FLUOROSCOPY WITH IMAGES CLINICAL INFORMATION: M47.816 - Spondylosis without myelopathy or radiculopathy, lumbar region COMPARISON: None. TECHNIQUE: Fluoroscopy Supervised By: Dr. Viraj Cagle. Fluoroscopy Time: 0.8 minutes Cumulative Dose: 20.9 mGy. DAP: 5.71 Gycm2. Images: 8. FINDINGS: There are spinal needles overlying the bilateral outer L3, L4, and L5 neural foramen. There is contrast seen in the respective nerve sheaths. Some early transforaminal epidural extension is suggested. No visible vascular communication. FL/FL guidance in treatment room IMPRESSION: Fluoroscopy for pain management procedures.
== END 2022-09-11 06:05 | disposition home or self-care (01) ==
LOC: CF 06:04
PROVIDERS: Visit Provider Anesthesiology
DX: Z13.89 Encounter for screening for other disorder (principal)
CPT/HCPCS: J3300

== ENCOUNTER 2022-09-13 10:32 | Day surgery (SDC) | payer MEDICARE, MEDICAID, SELFPAY ==
[2022-09-13 12:42] VITALS: BMI 30.2
--- NOTE | 2022-09-13 12:56 | MHC.SHP ---
Pre-Procedural Eval Section A Date of Service: 09/13/22 The patient is an INPATIENT: No Changes since office visit: No Cold of Flu in the past 2 weeks, No New Medical Problems, No Changes in Medication and No Patient answered all questions The History & Physical has been completed within 30 days and I have reviewed it.: Yes Section B Chief Complaint: Carpal tunnel syndrome, left upper limb Allergies: Allergies Allergy/AdvReac Type Severity Reaction Status Date / Time erythromycin base AdvReac Severe hives, Verified 09/11/22 07:34 stomach pain Plan I have reviewed the history and physical and performed a pertinent physical examination on my patient. No changes have occurred unless specified.
--- NOTE | 2022-09-13 12:57 | W.PM.OPN ---
Operative Note Operative Note Date of Service: 09/13/22 Narrative: Preop diagnosis: 1. Left Carpal tunnel syndrome Postop diagnosis: same Procedure: 1. Left Carpal tunnel release Surgeon: Rae Amado MD Anesthesia: local block using 1% lidocaine with epinephrine Findings: Thickened transverse carpal ligament. EBL: Less than 5 mL Specimens: None Complications: None Disposition: Brought to recovery room in stable condition Plan: Follow-up for 10-14 days for wound check and suture removal Indications: The patient is 56 years old, with left carpal tunnel syndrome that has been unresponsive to nonoperative management. The risks and benefits of operative treatment including but not limited to risk of damage to blood vessels, nerves, tendons, infection, persistent pain, persistent symptoms, or possible need for additional surgery were discussed with the patient and the patient wishes to proceed with surgery. Procedure: Once consent was obtained a local block was performed using a combination of 1% lidocaine with epinephrine. The patient was then brought back to the operating suite and placed on the operative table in supine position. A tourniquet was applied to the proximal aspect of the left upper extremity and the limb was prepped and draped in a standard surgical fashion. Once assured that we had a good block, a 2.0 cm longitudinal incision was made centered over the carpal tunnel. The incision was made through the skin to the subcutaneous tissues using a #15 blade. Dissection was made down to the level of the transverse carpal ligament with care being taken to protect the palmar cutaneous nerve. Once the transverse carpal ligament was clearly visualized, a longitudinal incision was made in the transverse carpal ligament 1st using a #15 blade, then using tenotomy scissors under direct visualization. Care was taken to look for and protect the motor branch of the median nerve when seen in this area. Once satisfied with our carpal tunnel release the wound was copiously irrigated with normal saline and hemostasis was obtained with a brief period of local pressure. The skin edges were reapproximated with some 5.0 nylon suture material and a sterile dressing was applied. The patient appears to have tolerated the procedure well and with no complications. All digits were well vascularized at the conclusion of the case.
[2022-09-13 13:49] VITALS: BP 146/87; PULSE 72; RESP 18; O2SAT 96
== END 2022-09-13 13:59 | disposition home or self-care (01) ==
PROVIDERS: PCP Internal Medicine; Visit Provider Orthopaedic Surgery
PROC: (CPT 64721; principal; 2022-09-13 11:20)
DX: G56.02 Carpal tunnel syndrome, left upper limb (principal); R20.0 Anesthesia of skin; R20.2 Paresthesia of skin; J45.909 Unspecified asthma, uncomplicated; I10 Essential (primary) hypertension; E78.00 Pure hypercholesterolemia, unspecified; F33.2 Major depressive disorder, recurrent severe without psychotic features; Z85.3 Personal history of malignant neoplasm of breast; Z88.1 Allergy status to other antibiotic agents
CPT/HCPCS: 64721; J0171

== ENCOUNTER → 2022-09-18 13:45 | Outpatient (BNVA) | payer MEDICARE, MEDICAID, SELFPAY | PROVIDERS: PCP Internal Medicine; Visit Provider Anesthesiology | DX: Z48.89 Encounter for other specified surgical aftercare (principal) | CPT/HCPCS: 99211 ==

== ENCOUNTER → 2022-09-26 12:49 | Outpatient (BNVA) | payer MEDICARE, MEDICAID, SELFPAY | PROVIDERS: PCP Internal Medicine; Visit Provider Orthopaedic Surgery | DX: G56.02 Carpal tunnel syndrome, left upper limb (principal); R20.0 Anesthesia of skin | CPT/HCPCS: 99212 ==

== ENCOUNTER 2022-10-30 09:43 | Day surgery (SDC) | payer MEDICARE, MEDICAID, SELFPAY ==
--- NOTE | ~2022-10-30 | FL_ITS ---
EXAMINATION: XR FLUOROSCOPY WITH IMAGES CLINICAL INFORMATION: Lumbar pain. COMPARISON: None. TECHNIQUE: Fluoroscopy Supervised By: Dr. Viraj Roberts. Fluoroscopy Time: 0.2 minutes. Cumulative Dose: 5.17 mGy. DAP: 0.852 Gycm2. Images: 4. FINDINGS: There are 4 images of the lumbar spine obtained revealing needle positioned inferior to bilateral L5 pedicles with contrast opacifying the soft tissues. FL/FL guidance in OR IMPRESSION: Fluoroscopy was provided to referring physician for pain management.
[2022-10-30 10:14] VITALS: BMI 30.2
--- NOTE | 2022-10-30 10:18 | MHC.SHP ---
Pre-Procedural Eval Section A Date of Service: 10/30/22 Section B Chief Complaint: Spondylosis without myelopathy or radiculopathy, Details of Present Illness: As above Relevant Family History (Specify if Yes): No Relevant Social History: None Present Medications: None Medical History: No relevant PMH History of Previous Operations: No relevant previous surgery Allergies: Allergies Allergy/AdvReac Type Severity Reaction Status Date / Time erythromycin base AdvReac Severe hives, Verified 09/18/22 14:52 stomach pain Review of Systems Sugical H&P ROS: Negative: Constitution, Cardiovascular, Respiratory, Neurological, Psychiatric, Hem-Onc, Allergic/Immunologic, Gastrointestinal, Genitourinary, Musculoskeletal, Integumentary, Endocrine and Eyes/Ears/Nose/Throat Exam Surgical H&P Exam: Normal: HEENT, Normal: Heart, Normal: Lungs, Normal: Extremities, Normal: Abdomen, Normal: Skin and Normal: Neurological Plan Diagnosis/Plan: Unchanged I have reviewed the history and physical and performed a pertinent physical examination on my patient. The planned procedure is bilateral PNS L5 SPRINT stimulation, posssible L4, possible S1 stimulation. Time Spent With Patient Time: Total time managing care of this patient today __5__ minutes.
[2022-10-30 10:19] VITALS: BP 153/93; PULSE 75; RESP 16; TEMP 36.8; O2SAT 97
--- NOTE | 2022-10-30 10:21 | W.PM.OPN ---
Operative Note Operative Note Date of Service: 10/30/22 Narrative: Percutaneous implantation of peripheral nerve stimulation bilateral L5 Sprint system. After the risks, benefits and alternatives were discussed with the patient and informed consent was obtained, patient was placed in the prone position and padded to foster comfort. Time out was performed delineating correct site and side of the procedure , name and of the patient, patient participated in time out procedure. Sterily draped C-arm was brought over the operating field and clear picture of the L5 lamina on the left was delineated on the screen. The upper central portion of the lamina was chosen as a target of the needle tip insertion . After identifying and marking the intended target, the skin around the planned entry point and the subcutaneous tissues were injected with local anesthetic forming skin wheal.. A percutaneous sleeve and stimulating probe lead introduction system were assembled, inserted and advanced through the skin wheal to the point of interest under C-arm view in tunnel vision fashion, the introducer needle was delivered to a location in proximity to the nerve. Multiple stimulation parameters were used to deliver stimulation to the nerve in concert with stimulating at multiple positions around the nerve. nerve target acquisition was confirmed at this level noting generation of in the corresponding to the nerve being stimulated. Various electrical parameter combinations were tested, and the lead location was adjusted (physically relocated) until the patient indicated overlapping the distribution of the patient?s typical region of pain. The stimulating probe was removed from the introducer and a percutaneous lead was guided through the needle and delivered to a location in similar proximity to the nerve. Final location was verified with electrical stimulation. The introducer needle was removed, and the exposed end of the percutaneous lead was attached to an external stimulator unit. After that the procedure was repeated in the me ring fashion at right L5 level. At the end of the case various electrical parameter combinations were again tested until the patient indicated paresthesia or muscle tension overlapping the distribution of the patient?s typical region of pain. After confirming that lead impedance was in the normal range, the external unit was detached, the needle was removed, and the lead was anchored at the skin. The lead was threaded into the connector block and electrical continuity and desired patient response was confirmed. The connector block was attached to the external stimulator unit. The site was covered with a sterile occlusive dressing and a image was taken to document final placement. Upon completion of the procedure the patient was taken outside the OR where she recovered uneventfully she went home without immediate complications.
--- NOTE | 2022-10-30 10:21 | PM.OP ---
Brief Operative Note Date of Service: 10/30/22 Pre-op diagnosis: spondylosis lumbar withouit myelo/radiculopathy Post-op diagnosis: same Procedure: PNS sprint bilateral L5 Surgeon: Viraj Cagle MD Anesthesia: local Was an [employer] used for this Procedure?: No Estimated blood loss (mL): 0 Pathology: none sent Condition: stable Disposition: PACU
[2022-10-30 11:10] VITALS: BP 162/92; PULSE 80; RESP 18; TEMP 36.7; O2SAT 97
[2022-10-30 11:29] VITALS: BP 149/91
== END 2022-10-30 11:44 | disposition home or self-care (01) ==
PROVIDERS: PCP Internal Medicine; Visit Provider Anesthesiology
PROC: (CPT 64555; principal; 2022-10-30 11:00)
DX: M47.816 Spondylosis without myelopathy or radiculopathy, lumbar region (principal)
CPT/HCPCS: 64555 ×2; C1778; J2795

== ENCOUNTER → 2022-11-05 13:44 | Outpatient (BNVA) | payer MEDICARE, MEDICAID, SELFPAY | PROVIDERS: PCP Internal Medicine; Visit Provider Anesthesiology | DX: M79.18 Myalgia, other site (principal); M53.3 Sacrococcygeal disorders, not elsewhere classified; M46.1 Sacroiliitis, not elsewhere classified; M47.816 Spondylosis without myelopathy or radiculopathy, lumbar region; M54.16 Radiculopathy, lumbar region; M54.2 Cervicalgia | CPT/HCPCS: 99212 ==

== ENCOUNTER → 2022-12-18 13:49 | Outpatient (BNVA) | payer MEDICARE, MEDICAID, SELFPAY | PROVIDERS: PCP Internal Medicine; Visit Provider Anesthesiology | DX: Z45.89 Encounter for adjustment and management of other implanted devices (principal); L29.9 Pruritus, unspecified; R21 Rash and other nonspecific skin eruption | CPT/HCPCS: 99211 ==

== ENCOUNTER → 2023-02-04 15:55 | Outpatient (BNVA) | payer MEDICARE, MEDICAID, SELFPAY | PROVIDERS: PCP Internal Medicine; Visit Provider Anesthesiology | DX: M79.18 Myalgia, other site (principal); M53.3 Sacrococcygeal disorders, not elsewhere classified; M46.1 Sacroiliitis, not elsewhere classified; M47.26 Other spondylosis with radiculopathy, lumbar region; M54.2 Cervicalgia | CPT/HCPCS: 99212 ==

== ENCOUNTER 2023-03-28 11:38 | Day surgery (SDC) | payer MEDICARE, MEDICAID, SELFPAY ==
--- NOTE | ~2023-03-28 | FL_ITS ---
EXAMINATION: XR FLUOROSCOPY WITH IMAGES CLINICAL INFORMATION: L3-L4 DRL Medial Brank Radio frequency COMPARISON: None available. TECHNIQUE: Fluoroscopy Supervised By: Dr. Viraj Cagle. Fluoroscopy Time: 1.2 minutes. Cumulative Dose: 11.7 mGy. DAP: 0.2 Gycm2. Images: 2. FINDINGS: Images demonstrate bilateral probe placement adjacent to the lower lateral lumbar vertebral bodies. FL/FL guidance in OR IMPRESSION: Fluoroscopy guidance for pain management procedure.
[2023-03-28 13:24] VITALS: BP 129/87; PULSE 68; RESP 18; TEMP 36.2; O2SAT 96; BMI 30.2
--- NOTE | 2023-03-28 13:26 | MHC.SHP ---
Pre-Procedural Eval Section A Date of Service: 03/28/23 The patient is an INPATIENT: No Changes since office visit: Yes Patient answered all questions The History & Physical has been completed within 30 days and I have reviewed it.: No Section B Chief Complaint: Spondylosis without myelopathy or radiculopathy, l Details of Present Illness: as above Relevant Family History (Specify if Yes): No Relevant Social History: None Present Medications: None Medical History: No relevant PMH History of Previous Operations: No relevant previous surgery Allergies: Allergies Allergy/AdvReac Type Severity Reaction Status Date / Time erythromycin base AdvReac Severe hives, Verified 12/18/22 15:40 stomach pain Review of Systems Sugical H&P ROS: Negative: Constitution, Cardiovascular, Respiratory, Neurological, Psychiatric, Hem-Onc, Allergic/Immunologic, Gastrointestinal, Genitourinary, Musculoskeletal, Integumentary, Endocrine and Eyes/Ears/Nose/Throat Exam Surgical H&P Exam: Normal: HEENT, Normal: Heart, Normal: Lungs, Normal: Extremities, Normal: Abdomen, Normal: Skin and Normal: Neurological Plan Diagnosis/Plan: Unchanged I have reviewed the history and physical and performed a pertinent physical examination on my patient. No changes have occurred unless specified. Time Spent With Patient Time: Total time managing care of this patient today ____ minutes.
--- NOTE | 2023-03-28 13:57 | W.PM.OPN ---
Operative Note Operative Note Date of Service: 03/28/23 Narrative: RFA L2-R4-H9-DRL5 bilateral Informed consent was explained to the patient. All questions were explained and answered. The patient was taken inside the operating room where he was positioned prone on the operating table. ASA m-rs were applied,? the patient was minimally sedated.She was? able to answer the questions and respond to the commands. Time-out was performed delineating name and of the patient,? correct site, side, the nature of the procedure, patient's allergy, preoperative antibiotic if needed. All operating room staff was participating in OR time-out procedure. The lower back was prepped with ChloraPrep and draped with sterile towels. C-arm was brought over the operating field and sq picture of L3, L4, L5 vertebra and S1 AREA were delineated on the screen. Point of interest were delineated as connection of superior articular process of L3, L4, L5 vertebra bilaterally with corresponding transverse processes as well as connection of the sacral alae bilaterally with superior articular process of S1 1st on the right and then on the left side. ?The projection of the point of interest to the skin were injected with the small amount of local anesthetic lidocaine 2% 1-1.5 cc. After that 18 gauge 100 mm RFA canulas? were driven to the point of interest in oblique fashion. After needles gently contacted the bone the sensory test was performed, patient reported pressure? sensation on sensory test.? After that motor tests were performed and no motor response was detected in the patients feet lower legs or thighs. After that? at the point of interests the cannulas? were injected with small amount of ropivacaine 0.5% mixed with lidocaine 1%-1cc? and also mixed with very small amount of Kenalog. 90 seconds after the injection the energy application was performed at 89 degrees Centigrade for 90 second. After first energy application the canullas were rotated 180 degrees and energy application was repeated at the same setting. Upon completion of the energy applications canullas were removed and sterile bandaids? were applied, The? patient was taken outside of the operating room to recovery room where she recovered uneventfully.
--- NOTE | 2023-03-28 13:58 | PM.OP ---
Brief Operative Note Date of Service: 03/28/23 Pre-op diagnosis: spondylosis lumbar spime without myelopathy or radiculopathy Post-op diagnosis: same Procedure: radiofrequency ablation of lumbar L3- L4- DRL5 MBBs Implants: none Surgeon: Viraj Cagle MD Anesthesia: local Was an Compliance Program Manager used for this Procedure?: No Estimated blood loss (mL): 4 Condition: stable Disposition: PACU
[2023-03-28 15:10] VITALS: BP 157/84; PULSE 67; RESP 16; TEMP 36.6; O2SAT 97
== END 2023-03-28 15:28 | disposition home or self-care (01) ==
PROVIDERS: PCP Internal Medicine; Visit Provider Anesthesiology
PROC: (CPT 64635; principal; 2023-03-28 13:10)
DX: M47.816 Spondylosis without myelopathy or radiculopathy, lumbar region (principal); M54.50 Low back pain, unspecified; M46.1 Sacroiliitis, not elsewhere classified; M53.3 Sacrococcygeal disorders, not elsewhere classified; M79.18 Myalgia, other site; M54.2 Cervicalgia; J45.909 Unspecified asthma, uncomplicated; I10 Essential (primary) hypertension; E78.00 Pure hypercholesterolemia, unspecified; E03.9 Hypothyroidism, unspecified; F33.2 Major depressive disorder, recurrent severe without psychotic features; F41.1 Generalized anxiety disorder; Z85.3 Personal history of malignant neoplasm of breast; Z88.1 Allergy status to other antibiotic agents
CPT/HCPCS: 64635; 64636 ×2; J3301

== ENCOUNTER 2023-05-15 13:04 | Outpatient (AMB) | payer MEDICARE, MEDICAID, SELFPAY ==
[2023-05-15 13:14] VITALS: BP 164/80; PULSE 62; O2SAT 95; BMI 30.8
--- NOTE | 2023-05-15 13:14 | MHC.OFFVIS ---
Intake Vital Signs 05/15/23 13:14 Height 5 ft 1 in Weight 163 lb BMI 30.8 BP 164/80 H Blood Pressure Location Rt brachial Position Sitting Pulse 62 Pulse Source Pulse Oximeter Pulse Oximetry (%) 95 Oxygen Delivery Method Room Air Intake Visit Reasons: s/p B/L MB RFA 03/28/23 Allergies erythromycin base Adverse Reaction (Severe, Verified 05/15/23 13:17) hives, stomach pain HPI HPI Comments History of Present Illness Details Liza is back in my office to report the results of the bilateral radiofrequency ablation L3-L4 does ramus L5 which was performed by me on 03/28/2023. It is so far 40 days of 80% pain improvement according to the patient's report. I instructed the patient that the the results of the procedure may last from 4-8 month, the insurance company will cover the cost of the procedure twice a year. She is very happy about the results of the injection. She will give us a call when pain will come back to schedule repeat RFA. LEFT SI JOINT FUSION 12/15/21: Details: Liza is in the office today after a left SI joint fusion done on 12/15/2021. She report She repors today residual pain however she requests us to destroyed the tramadol prescription which was given to her for postoperative pain. This alone demonstrates with results of the fusion already. She complains on discomfort in bilateral hip areas probably because of the compression of this areas with SI joint binder. She received sacroiliac joint injection with undetermined results on the left, after that she received injection of the sacroiliac joint innervation of the left which resulted with 100% pain improvement. She went for the fusion of the left sacroiliac joint as above. The dressing was removed and the wound was washed with ChloraPrep. On inspection there is no redness, there is no swelling, there is no pathological discharge, there is no tenderness of palpation, sutures are competent and ages of the wounds are intact. Two nylon sutures were severed today and removed. Bacitracin ointment was applied. PRIOR: Liza is a pleasant 55 year old female who presents to the office with multiple pain generators. She states the pain started about ten years ago without any inciting events and has progressively worsens. She reports the pain in her neck is mostly towards the left with tightness throughout her bilateral trapezius muscles and occasionally has radiation down the left arm to her elbow with associated numbness. She notes dropping objects more easily with the left hand.Her lumbar pain radiates across the low back and laterally down her left leg to her ankle with associated numbness throughout her left funes as well as occasional weakness of the LLE. She states the numbness of her left funes has been present since having COVID a few months ago. She denies any saddle anesthesia or bowel/bladder dysfunction. She reports a history of neuropathy of bilateral feet with burning, tingling and numbness. Denies any history of DM. She reports pain onset was gradual, constant and rates the pain a 10/10. She states the pain is interfering with sleep, activities of daily living and she cannot function normally. The patient reports the pain in terms of tissue damage as pulsing, throbbing, stabbing, sharp, pinching, tingling, as well as heavy, tiring, radiating and tight. She has been taking gabapetin and ibuprofen with some improvement. She has also tried topicals, such as lidocaine and salonpas with minimal effect. In the past, she had received injections at [facility] targeted her right sided radiculopathies. She states short lived relief with these. Previously she has tried physical therapy but felt her symptoms were unchanged. She has also tried a TENS unit, chiropractic manipulation and acupuncture but the relief was only temporary. Denies any previous cervical/lumbar surgery. She last had imaging of her cervical and lumbar spine in 2020, but these reports are not available today. We have copies of a cervical and lumbar MRI from 2020, which are both scanned into her chart. She reports seeing a surgeon last year who recommended against surgery, as her pain may worsen. [facility] Medical History Anxiety Arthritis Asthma Carpal tunnel syndrome Depression Elevated cholesterol HTN (hypertension) Hx of breast cancer Hypothyroid Insomnia Low back pain Major depressive disorder, recurrent severe without psychotic features Sacroiliitis Surgical History History of lumpectomy of right breast Hx of hysterectomy Social History Patient Tobacco Use Status: Never used Tobacco Current occupational status: disabled Current occupation: left hand / Review of Systems Const All systems reviewed & are unremarkable except as noted in HPI and below Physical Exam Vital Signs: Last Vital Signs Pulse 62 05/15/23 13:14 BP 164/80 H 05/15/23 13:14 Pulse Ox 95 05/15/23 13:14 Oxygen Delivery Method Room Air 05/15/23 13:14 BMI result Body Mass Index 30.8 Const General: cooperative, healthy appearing, no acute distress, alert and well groomed Nutritional Appearance: overweight Orientation/consciousness: patient oriented x3 Limitations: no limitations HEENT Head: Yes normal to inspection, Yes normocephalic and Yes atraumatic Ears: hearing grossly normal bilaterally Eyes General: appearance normal, both eyes and all related structures Eyelids: Yes eyelids normal Sclerae: sclerae normal EOM: EOMs intact bilaterally Neck Neck: Yes normal visual inspection and Yes full ROM Chest Chest palpation & inspection: normal inspection of the chest Resp Effort & Inspection: normal respiratory effort, able to speak in complete sentences, no audible wheezes, no cough and symmetric chest movement Cardio Jugular venous distension: no JVD Palpation: other (no appreciable rhythmic abnormalities) Bruits: no carotid bruits Peripheral pulses: radial pulses present, posterior tibial pulses present and dorsalis pedis present GI Inspection: Yes normal to inspection and No distended Palpation (GI): Soft to palpation General: Yes no CVA tenderness Back/Spine/Pelvis Other: Patient able to walk on heels and tip toes without difficulty and without assisting devices. Can flex forward to 75-80 degrees and extend to 10 degrees before experiencing moderate to severe lumbar pain. Demonstrates 5/5 strength of quadriceps bilaterally as well as flexion/dorsiflexion of bilateral feet against resistance. 2+ pedal pulses bilaterally. Straight leg rise with dorsiflexion negative bilaterally. Facet loading test positive bilaterally. Moderate tenderness in the projections of right SIJ. Laxmi signs, Stinchfield, Pravin?s and pelvic compression positive on the right and negative on the left.? Loading test is positive on the right. Arching back be backwards aggravates her pain in the lumbar spine Back: no CVA tenderness Sacroiliac joints: on the right tender to palpation Skin General skin exam: no rashes or lesions noted Neuro General: patient oriented x3, gait normal and moves all extremities Gait exam (Neuro): Normal gait present Motor exam (neuro): 5/5 motor strength present throughout Extrem General: Yes capillary refill normal, Yes no clubbing, cyanosis or edema and Yes no calf tenderness Psych Appearance: grossly normal Mental Status: mental status grossly normal Speech and movement: Normal speech and movement present Affect: normal affect Attitude: cooperative Thought process: Normal thought process present Thought content: Normal thought content present Insight: Good insight present (Psych) Judgement: Good judgement present (Psych) Assessment & Plan Assessment & Plan (1) Myofascial pain: Code(s): M79.18 - Myalgia, other site (2) Sacroiliac joint pain: Code(s): M53.3 - Sacrococcygeal disorders, not elsewhere classified (3) Sacroiliitis: Code(s): M46.1 - Sacroiliitis, not elsewhere classified (4) Lumbar spondylosis: Code(s): M47.816 - Spondylosis without myelopathy or radiculopathy, lumbar region Plan: complications. (5) Left lumbar radiculopathy: Code(s): M54.16 - Radiculopathy, lumbar region (6) Cervicalgia: Code(s): M54.2 - Cervicalgia (7) Spondylosis of lumbar region without myelopathy or radiculopathy: Code(s): M47.816 - Spondylosis without myelopathy or radiculopathy, lumbar region Plan: RFA resulted in 80% pain improvement for the past 40 days. Previously patient had left SI joint fusion. She also appears to have right SI joint symptoms however those were not addressed with the fusion. Currently patient is very happy about her pain improvement. She is willing to give us a call when will pain come back to schedule yet another RFA. No new appointment is needed at this time. Coding Level of Care Code Est Pt Level 4 (89429) Diagnoses Myofascial pain M79.18 Sacroiliac joint pain M53.3 Sacroiliitis M46.1 Lumbar spondylosis M47.816 Left lumbar radiculopathy M54.16 Cervicalgia M54.2 Spondylosis of lumbar region without myelopathy or radiculopathy M47.816
== END 2023-05-15 13:51 | disposition home or self-care (01) ==
PROVIDERS: PCP Internal Medicine; Visit Provider Anesthesiology
DX: M79.18 Myalgia, other site (principal); M53.3 Sacrococcygeal disorders, not elsewhere classified; M46.1 Sacroiliitis, not elsewhere classified; M47.816 Spondylosis without myelopathy or radiculopathy, lumbar region; M54.16 Radiculopathy, lumbar region; M54.2 Cervicalgia
CPT/HCPCS: 99214

== ENCOUNTER → 2023-05-15 13:04 | Outpatient (BNVA) | payer MEDICARE, MEDICAID, SELFPAY | PROVIDERS: PCP Internal Medicine; Visit Provider Anesthesiology | DX: M46.1 Sacroiliitis, not elsewhere classified (principal); M53.3 Sacrococcygeal disorders, not elsewhere classified; M47.816 Spondylosis without myelopathy or radiculopathy, lumbar region; M54.16 Radiculopathy, lumbar region; M54.2 Cervicalgia; M79.18 Myalgia, other site | CPT/HCPCS: 99212 ==

== ENCOUNTER 2023-09-30 10:28 | Outpatient (AMB) | payer MEDICARE, MEDICAID, SELFPAY ==
--- NOTE | 2023-09-30 10:58 | MHC.OFFVIS ---
Intake Vital Signs 09/30/23 11:01 Height 5 ft 1 in Weight 162 lb BMI 30.6 BP 118/80 Blood Pressure Location Lt brachial Position Sitting Respiration 14 Pulse 80 Pulse Source Pulse Oximeter Pulse Oximetry (%) 97 Oxygen Delivery Method Room Air Intake Visit Reasons: Increased Back Pain/confirmed Allergies erythromycin base Adverse Reaction (Severe, Verified 09/30/23 11:02) hives, stomach pain HPI HPI Comments History of Present Illness Details Liza is back in my office to report the results of the bilateral radiofrequency ablation L3-L4 does ramus L5 which was performed by me on 03/28/2023. It has been 4 and half to 5 months of 80% pain improvement. In July of 2023 the pain started to come back. The pain is now severe and she reports today pain 8/10. She requests me to repeat this procedure under sedation. I will schedule her for bilateral radiofrequency ablation L3-L4 dorsal ramus L5 under sedation. LEFT SI JOINT FUSION 12/15/21: Details: Liza is in the office today after a left SI joint fusion done on 12/15/2021. She report She repors today residual pain however she requests us to destroyed the tramadol prescription which was given to her for postoperative pain. This alone demonstrates with results of the fusion already. She complains on discomfort in bilateral hip areas probably because of the compression of this areas with SI joint binder. She received sacroiliac joint injection with undetermined results on the left, after that she received injection of the sacroiliac joint innervation of the left which resulted with 100% pain improvement. She went for the fusion of the left sacroiliac joint as above. The dressing was removed and the wound was washed with ChloraPrep. On inspection there is no redness, there is no swelling, there is no pathological discharge, there is no tenderness of palpation, sutures are competent and ages of the wounds are intact. Two nylon sutures were severed today and removed. Bacitracin ointment was applied. PRIOR: Liza is a pleasant 55 year old female who presents to the office with multiple pain generators. She states the pain started about ten years ago without any inciting events and has progressively worsens. She reports the pain in her neck is mostly towards the left with tightness throughout her bilateral trapezius muscles and occasionally has radiation down the left arm to her elbow with associated numbness. She notes dropping objects more easily with the left hand.Her lumbar pain radiates across the low back and laterally down her left leg to her ankle with associated numbness throughout her left funes as well as occasional weakness of the LLE. She states the numbness of her left funes has been present since having COVID a few months ago. She denies any saddle anesthesia or bowel/bladder dysfunction. She reports a history of neuropathy of bilateral feet with burning, tingling and numbness. Denies any history of DM. She reports pain onset was gradual, constant and rates the pain a 10/10. She states the pain is interfering with sleep, activities of daily living and she cannot function normally. The patient reports the pain in terms of tissue damage as pulsing, throbbing, stabbing, sharp, pinching, tingling, as well as heavy, tiring, radiating and tight. She has been taking gabapetin and ibuprofen with some improvement. She has also tried topicals, such as lidocaine and salonpas with minimal effect. In the past, she had received injections at [facility] targeted her right sided radiculopathies. She states short lived relief with these. Previously she has tried physical therapy but felt her symptoms were unchanged. She has also tried a TENS unit, chiropractic manipulation and acupuncture but the relief was only temporary. Denies any previous cervical/lumbar surgery. She last had imaging of her cervical and lumbar spine in 2020, but these reports are not available today. We have copies of a cervical and lumbar MRI from 2020, which are both scanned into her chart. She reports seeing a surgeon last year who recommended against surgery, as her pain may worsen. [facility] Medical History Anxiety Arthritis Asthma Carpal tunnel syndrome Depression Elevated cholesterol HTN (hypertension) Hx of breast cancer Hypothyroid Insomnia Low back pain Major depressive disorder, recurrent severe without psychotic features Sacroiliitis Surgical History History of lumpectomy of right breast Hx of hysterectomy Social History Patient Tobacco Use Status: Never used Tobacco Current occupational status: disabled Current occupation: left hand / Review of Systems Const All systems reviewed & are unremarkable except as noted in HPI and below Physical Exam Vital Signs: Last Vital Signs Pulse 80 09/30/23 11:01 Resp 14 09/30/23 11:01 BP 118/80 09/30/23 11:01 Pulse Ox 97 09/30/23 11:01 Oxygen Delivery Method Room Air 09/30/23 11:01 BMI result Body Mass Index 30.6 Const General: cooperative, healthy appearing, no acute distress, alert and well groomed Nutritional Appearance: overweight Orientation/consciousness: patient oriented x3 Limitations: no limitations HEENT Head: Yes normal to inspection, Yes normocephalic and Yes atraumatic Ears: hearing grossly normal bilaterally Eyes General: appearance normal, both eyes and all related structures Eyelids: Yes eyelids normal Sclerae: sclerae normal EOM: EOMs intact bilaterally Neck Neck: Yes normal visual inspection and Yes full ROM Chest Chest palpation & inspection: normal inspection of the chest Resp Effort & Inspection: normal respiratory effort, able to speak in complete sentences, no audible wheezes, no cough and symmetric chest movement Cardio Jugular venous distension: no JVD Palpation: other (no appreciable rhythmic abnormalities) Bruits: no carotid bruits Peripheral pulses: radial pulses present, posterior tibial pulses present and dorsalis pedis present GI Inspection: Yes normal to inspection and No distended Palpation (GI): Soft to palpation General: Yes no CVA tenderness Back/Spine/Pelvis Other: Patient able to walk on heels and tip toes without difficulty and without assisting devices. Can flex forward to 75-80 degrees and extend to 10 degrees before experiencing moderate to severe lumbar pain. Demonstrates 5/5 strength of quadriceps bilaterally as well as flexion/dorsiflexion of bilateral feet against resistance. 2+ pedal pulses bilaterally. Straight leg rise with dorsiflexion negative bilaterally. Facet loading test positive bilaterally. Moderate tenderness in the projections of right SIJ. Laxmi signs, Stinchfield, Pravin?s and pelvic compression positive on the right and negative on the left.? Loading test is positive on the right. Arching back be backwards aggravates her pain in the lumbar spine Back: no CVA tenderness Sacroiliac joints: on the right tender to palpation Skin General skin exam: no rashes or lesions noted Neuro General: patient oriented x3, gait normal and moves all extremities Gait exam (Neuro): Normal gait present Motor exam (neuro): 5/5 motor strength present throughout Extrem General: Yes capillary refill normal, Yes no clubbing, cyanosis or edema and Yes no calf tenderness Psych Appearance: grossly normal Mental Status: mental status grossly normal Speech and movement: Normal speech and movement present Affect: normal affect Attitude: cooperative Thought process: Normal thought process present Thought content: Normal thought content present Insight: Good insight present (Psych) Judgement: Good judgement present (Psych) Assessment & Plan Assessment & Plan (1) Myofascial pain: Code(s): M79.18 - Myalgia, other site (2) Sacroiliitis: Code(s): M46.1 - Sacroiliitis, not elsewhere classified (3) Lumbar spondylosis: Code(s): M47.816 - Spondylosis without myelopathy or radiculopathy, lumbar region Plan: complications. (4) Left lumbar radiculopathy: Code(s): M54.16 - Radiculopathy, lumbar region Plan: (5) Cervicalgia: Code(s): M54.2 - Cervicalgia Plan: (6) Spondylosis of lumbar region without myelopathy or radiculopathy: Code(s): M47.816 - Spondylosis without myelopathy or radiculopathy, lumbar region Plan: RFA resulted in 80% pain improvement for the past 5 months. I will schedule her for another RFA with sedation. Previously patient had left SI joint fusion. She also appears to have right SI joint symptoms however those were not addressed with the fusion. Plan Coding Level of Care Code Est Pt Level 3 (97905) Diagnoses Myofascial pain M79.18 Sacroiliitis M46.1 Lumbar spondylosis M47.816 Left lumbar radiculopathy M54.16 Cervicalgia M54.2 Spondylosis of lumbar region without myelopathy or radiculopathy M47.816
[2023-09-30 11:01] VITALS: BP 118/80; PULSE 80; RESP 14; O2SAT 97; BMI 30.6
== END 2023-09-30 11:25 | disposition home or self-care (01) ==
PROVIDERS: PCP Internal Medicine; Visit Provider Anesthesiology
DX: M46.1 Sacroiliitis, not elsewhere classified (principal); M79.18 Myalgia, other site; M47.26 Other spondylosis with radiculopathy, lumbar region; M54.2 Cervicalgia
CPT/HCPCS: 99213

== ENCOUNTER → 2023-09-30 10:28 | Outpatient (BNVA) | payer MEDICARE, MEDICAID, SELFPAY | PROVIDERS: PCP Internal Medicine; Visit Provider Anesthesiology | DX: M47.26 Other spondylosis with radiculopathy, lumbar region (principal); M46.1 Sacroiliitis, not elsewhere classified; M79.18 Myalgia, other site; M54.2 Cervicalgia | CPT/HCPCS: 99212 ==

== ENCOUNTER 2023-10-08 11:12 | Outpatient (REF) | payer MEDICARE, MEDICAID, SELFPAY ==
--- NOTE | ~2023-10-08 | XR_ITS ---
EXAMINATION: XR LUMBOSACRAL SPINE CLINICAL INFORMATION: Pain. COMPARISON: Pelvic CT 08/24/2022. TECHNIQUE: Three views of the lumbosacral spine. FINDINGS: No evidence of acute compression deformity or traumatic subluxation. Mild intervertebral disc height loss and facet arthropathy at L5-S1. Symmetric SI joints. Radiopacity projecting medial to the SI joint corresponds to a device noted on prior CT pelvis along the posterior aspect of the SI joint, similar in positioning compared to the exhibit artist view of the prior examination from 08/25/2022. Right upper quadrant surgical clip. Small pelvic phleboliths. XR/XR lumbar spine 2-3V IMPRESSION: 1. No acute compression deformity or malalignment. 2. Mild lumbar spondylosis at L5-S1.
== END 2023-10-08 11:13 | disposition home or self-care (01) ==
LOC: HO.XRAY 11:12
PROVIDERS: PCP Internal Medicine; Visit Provider Anesthesiology
DX: M47.816 Spondylosis without myelopathy or radiculopathy, lumbar region (principal)
CPT/HCPCS: 72100

== ENCOUNTER 2023-11-07 11:45 | Day surgery (SDC) | payer MEDICARE, MEDICAID, SELFPAY ==
[2023-11-04 13:11] VITALS: BMI 30.6
--- NOTE | 2023-11-06 08:41 | HO.ANESPROP2 ---
HPI - Anesthesia Eval Consult details Narrative: 58yo F for Bilateral L3-L4-DR L5 Medial Branch [facility] Active Problems Active Problems: All Active Problems (Updated 08/29/22 @ 09:28 by Aly Parks) Numbness of left hand (Acute) Numbness of right hand (Acute) Carpal tunnel syndrome of left wrist (Acute) Spondylosis of lumbar region without myelopathy or radiculopathy (Acute) Carpal tunnel syndrome (Acute) Lumbar spondylosis (Acute) Major depressive disorder, recurrent severe without psychotic features (Acute) Spondylosis of cervical spine with radiculopathy (Acute) Myofascial pain (Acute) Left lumbar radiculopathy (Acute) Cervicalgia (Acute) Sacroiliac joint pain (Acute) Sacroiliitis (Acute) Past Medical History Medical History Anxiety Arthritis Asthma Carpal tunnel syndrome Depression Elevated cholesterol HTN (hypertension) Hx of breast cancer Hypothyroid Insomnia Low back pain Major depressive disorder, recurrent severe without psychotic features Sacroiliitis Family History Family history of problems with anesthesia: No Surgical History Surgical History History of lumpectomy of right breast Hx of hysterectomy History of Problems with Anesthesia: No Social History Social History Patient Tobacco Use Status: Never used Tobacco Current occupational status: disabled Current occupation: left hand / Meds Allergies Allergy/AdvReac Type Severity Reaction Status Date / Time erythromycin base AdvReac Severe hives, Verified 09/30/23 11:02 stomach pain Home Medications Medication Instructions Recorded Confirmed Last Taken Type atorvastatin 20 mg tablet 20 mg PO BEDTIME 03/01/21 03/28/23 Unknown History bupropion HCl 200 mg tablet,12 hr 200 mg PO DAILY 03/01/21 03/28/23 12/15/21 History sustained-release desvenlafaxine succinate 100 mg 100 mg PO DAILY 03/01/21 03/28/23 10/30/22 History tablet,extended release 24 hr (Pristiq) gabapentin 300 mg capsule 300 mg PO TID 03/01/21 03/28/23 12/15/21 History losartan 50 mg tablet 50 mg PO DAILY 03/01/21 03/28/23 Unknown History trazodone 100 mg tablet 100 mg PO BEDTIME PRN Insomnia 03/01/21 03/28/23 Unknown History albuterol sulfate 90 mcg/actuation 2 inh inhalation Q4-6H PRN 09/25/21 03/28/23 12/15/21 History aerosol inhaler Shortness Of Breath Or Wheezing levothyroxine 175 mcg tablet 1 tab PO DAILY 09/25/21 03/28/23 10/30/22 History amlodipine 5 mg tablet 5 mg PO DAILY 08/29/22 03/28/23 Unknown History aripiprazole 10 mg tablet 10 mg PO DAILY 08/29/22 03/28/23 Unknown History sumatriptan succinate 100 mg tablet 100 mg PO DAILY 08/29/22 03/28/23 Unknown History budesonide-formoterol HFA 160 1 puff inhalation BID 03/28/23 03/28/23 Unknown History mcg-4.5 mcg/actuation aerosol inhaler (Symbicort) budesonide-formoterol HFA 160 2 puff inhalation BID 03/28/23 03/28/23 Unknown History mcg-4.5 mcg/actuation aerosol inhaler (Symbicort) Exam Height,Weight and Vital Signs: Height 5 ft 1 in Weight 73.482 kg Assessment and Plan Final Anesthetic Review Family History of Problems with Anesthesia: No History of Problems with Anesthesia: No
--- NOTE | ~2023-11-07 | FL_ITS ---
EXAMINATION: XR FLUOROSCOPY WITH IMAGES CLINICAL INFORMATION: L4, L4, DR L5 RFA COMPARISON: None available. TECHNIQUE: Fluoroscopy Supervised By: Dr. Viraj Cagle. Fluoroscopy Time: 1.1 minutes. Cumulative Dose: 15.9 mGy. DAP: 2.54 Gycm2. Images: 8. FINDINGS: Fluoroscopy guidance was utilized for procedure. Images demonstrate localization of several probes on the right at the levels of L3-S1 and at the left at the levels of L3-S1. FL/FL guidance in OR IMPRESSION: Imaging guidance for procedure. For further detail regarding procedure and findings please refer to operative report.
[2023-11-07 13:08] VITALS: BMI 29.4
[2023-11-07 13:31] VITALS: BP 140/86; PULSE 78; RESP 16; TEMP 37.4; O2SAT 96
[2023-11-07] MEDS: Lactated Ringers 1,000 ML 100 ML IVCONT (13:42)
--- NOTE | 2023-11-07 13:56 | MHC.SHP ---
Pre-Procedural Eval Section A Date of Service: 11/07/23 The patient is an INPATIENT: No Changes since office visit: Yes Patient answered all questions The History & Physical has been completed within 30 days and I have reviewed it.: No Section B Chief Complaint: Spondylosis without myelopathy or radiculopathy, Details of Present Illness: as above Relevant Family History (Specify if Yes): No Relevant Social History: None Present Medications: None Medical History: No relevant PMH History of Previous Operations: No relevant previous surgery Allergies: Allergies Allergy/AdvReac Type Severity Reaction Status Date / Time erythromycin base AdvReac Severe hives, Verified 09/30/23 11:02 stomach pain Review of Systems Sugical H&P ROS: Negative: Constitution, Cardiovascular, Respiratory, Neurological, Psychiatric, Hem-Onc, Allergic/Immunologic, Gastrointestinal, Genitourinary, Musculoskeletal, Integumentary, Endocrine and Eyes/Ears/Nose/Throat Exam Surgical H&P Exam: Normal: HEENT, Normal: Heart, Normal: Lungs, Normal: Extremities, Normal: Abdomen, Normal: Skin and Normal: Neurological Plan Diagnosis/Plan: Unchanged I have reviewed the history and physical and performed a pertinent physical examination on my patient. No changes have occurred unless specified. Time Spent With Patient Time: Total time managing care of this patient today __10_ minutes.
--- NOTE | 2023-11-07 13:57 | P.CONAN_ITS ---
[facility] Active Problems Active Problems: All Active Problems (Updated 11/07/23 @ 13:38 by Edie Lewis RN) Numbness of left hand (Acute) Numbness of right hand (Acute) Carpal tunnel syndrome of left wrist (Acute) Spondylosis of lumbar region without myelopathy or radiculopathy (Acute) Lumbar spondylosis (Acute) Sacroiliac joint pain (Acute) Cervicalgia (Acute) Left lumbar radiculopathy (Acute) Myofascial pain (Acute) Spondylosis of cervical spine with radiculopathy (Acute) Carpal tunnel syndrome (Acute) Major depressive disorder, recurrent severe without psychotic features (Acute) Sacroiliitis (Acute) Past Medical History Medical History Carpal tunnel syndrome Major depressive disorder, recurrent severe without psychotic features Hx of breast cancer Arthritis Low back pain Insomnia Elevated cholesterol HTN (hypertension) Depression Anxiety Hypothyroid Asthma Sacroiliitis Functional capacity: independent ambulation Patient : No Family History Family history of problems with anesthesia: No Surgical History Surgical History History of lumpectomy of right breast Hx of hysterectomy History of Problems with Anesthesia: No Social History Social History Patient Tobacco Use Status: Never used Tobacco Use of substances other than those prescribed or required for medical reasons: No Are you DNR?: No Advance Directives: No Advance Directives Information Provided: Yes Current occupational status: disabled Current occupation: left hand / Meds Allergies Allergy/AdvReac Type Severity Reaction Status Date / Time erythromycin base AdvReac Severe hives, Verified 09/30/23 11:02 stomach pain Active Medications: Current Medications Albuterol Sulfate (Albuterol Sulfate (0.083%) 2.5 Mg/3 Ml Vial.Neb) 2.5 mg INHALE ONCE PRN PRN Reason: Shortness of Breath/Wheezing Lactated Ringer's (Lr) 1,000 mls @ 100 mls/hr IVCONT .Q10H KATIUSKA Last Admin: 11/07/23 13:42 Dose: 100 mls/hr Home Medications Medication Instructions Recorded Confirmed Last Taken Type atorvastatin 20 mg tablet 20 mg PO BEDTIME 03/01/21 03/28/23 Unknown History bupropion HCl 200 mg tablet,12 hr 200 mg PO DAILY 03/01/21 11/07/23 11/07/23 History sustained-release desvenlafaxine succinate 100 mg 100 mg PO DAILY 03/01/21 03/28/23 10/30/22 History tablet,extended release 24 hr (Pristiq) gabapentin 300 mg capsule 300 mg PO TID 03/01/21 03/28/23 12/15/21 History losartan 50 mg tablet 50 mg PO DAILY 03/01/21 03/28/23 Unknown History trazodone 100 mg tablet 100 mg PO BEDTIME PRN Insomnia 03/01/21 03/28/23 Unknown History albuterol sulfate 90 mcg/actuation 2 inh inhalation Q4-6H PRN 09/25/21 03/28/23 12/15/21 History aerosol inhaler Shortness Of Breath Or Wheezing levothyroxine 175 mcg tablet 180 mcg PO DAILY 09/25/21 11/07/23 11/07/23 History amlodipine 5 mg tablet 5 mg PO DAILY 08/29/22 03/28/23 Unknown History aripiprazole 10 mg tablet 10 mg PO DAILY 08/29/22 03/28/23 Unknown History sumatriptan succinate 100 mg tablet 100 mg PO DAILY 08/29/22 03/28/23 Unknown History budesonide-formoterol HFA 160 1 puff inhalation BID 03/28/23 03/28/23 Unknown History mcg-4.5 mcg/actuation aerosol inhaler (Symbicort) budesonide-formoterol HFA 160 2 puff inhalation BID 03/28/23 03/28/23 Unknown History mcg-4.5 mcg/actuation aerosol inhaler (Symbicort) Exam Height,Weight and Vital Signs: Height 5 ft 1 in Weight 70.534 kg Last Vital Signs Temp 99.3 F 11/07/23 13:31 Pulse 78 11/07/23 13:31 Resp 16 11/07/23 13:31 BP 140/86 H 11/07/23 13:31 Pulse Ox 96 11/07/23 13:31 O2 Del Method Room Air 11/07/23 13:31 Airway Mallampati Class: II TM Dist: >3cm Neck ROM: Full Heart: RRR Lungs: CTA Assessment and Plan Assessment Anesthesia Assessment: Anesthesia Plan Discussed Final Anesthetic Review Family History of Problems with Anesthesia: No History of Problems with Anesthesia: No ASA Class: II Final Preanesthetic Review: Meds/Allgs Chart Reviewed, Consent Obtained/Reviewed and Anes Risks/Benef Reviewed Patient Risk: Low Procedure Risk: Low Anesthetic Plan Anesthetic Plan: MAC: and Agree w/ Assess. and Plan Disposition: Standard PACU
--- NOTE | 2023-11-07 14:11 | W.PM.OPN ---
Operative Note Operative Note Date of Service: 11/07/23 Narrative: RFA H2-I5-P3-DRL5 bilateral Informed consent was explained to the patient. All questions were explained and answered. The patient was taken inside the operating room where he was positioned prone on the operating table. ASA m-rs were applied,? the patient was minimally sedated.She was? able to answer the questions and respond to the commands. Time-out was performed delineating name and of the patient,? correct site, side, the nature of the procedure, patient's allergy, preoperative antibiotic if needed. All operating room staff was participating in OR time-out procedure. The lower back was prepped with ChloraPrep and draped with sterile towels. C-arm was brought over the operating field and sq picture of L3, L4, L5 vertebra and S1 AREA were delineated on the screen. Point of interest were delineated as connection of superior articular process of L3, L4, L5 vertebra bilaterally with corresponding transverse processes as well as connection of the sacral alae bilaterally with superior articular process of S1 1st on the right and then on the left side. ?The projection of the point of interest to the skin were injected with the small amount of local anesthetic lidocaine 2% 1-1.5 cc. After that 18 gauge 100 mm RFA canulas? were driven to the point of interest in oblique fashion. After needles gently contacted the bone the sensory test was performed, patient reported pressure? sensation on sensory test.? After that motor tests were performed and no motor response was detected in the patients feet lower legs or thighs. After that? at the point of interests the cannulas? were injected with small amount of ropivacaine 0.5% mixed with lidocaine 1%-1cc? and also mixed with very small amount of Kenalog. 90 seconds after the injection the energy application was performed at 89 degrees Centigrade for 90 second. After first energy application the canullas were rotated 180 degrees and energy application was repeated at the same setting. Upon completion of the energy applications canullas were removed and sterile bandaids? were applied, The? patient was taken outside of the operating room to recovery room where she recovered uneventfully.
--- NOTE | 2023-11-07 15:19 | PM.OP ---
Brief Operative Note Date of Service: 11/07/23 Pre-op diagnosis: Spondylosis lumbar without myelopathy or radiculopathy Post-op diagnosis: same Procedure: Bilateral radiofrequency ablation L2- L3-L4 does ramus L5. Surgeon: Viraj Cagle MD Anesthesia: MAC Was an Gasoline Catalyst Operator used for this Procedure?: No Estimated blood loss (mL): 4 Condition: stable Disposition: PACU
[2023-11-07 15:25] VITALS: BP 168/98; PULSE 86; RESP 16; TEMP 36.1; O2SAT 98
[2023-11-07 15:40] VITALS: BP 167/89; PULSE 75; RESP 16; O2SAT 98
[2023-11-07 15:55] VITALS: BP 167/89; PULSE 82; RESP 16; TEMP 36.4; O2SAT 99
== END 2023-11-07 16:00 | disposition home or self-care (01) ==
PROVIDERS: PCP Internal Medicine; Visit Provider Anesthesiology
PROC: (CPT 64635; principal; 2023-11-07 14:30)
DX: M47.816 Spondylosis without myelopathy or radiculopathy, lumbar region (principal); M54.50 Low back pain, unspecified; M46.1 Sacroiliitis, not elsewhere classified; M79.18 Myalgia, other site; M54.2 Cervicalgia; J45.909 Unspecified asthma, uncomplicated; I10 Essential (primary) hypertension; E78.00 Pure hypercholesterolemia, unspecified; E03.9 Hypothyroidism, unspecified; F33.2 Major depressive disorder, recurrent severe without psychotic features; F41.1 Generalized anxiety disorder; M19.90 Unspecified osteoarthritis, unspecified site; Z85.3 Personal history of malignant neoplasm of breast; Z88.1 Allergy status to other antibiotic agents
CPT/HCPCS: 64635; 64636 ×2; J2250; J2795; J3010; J3301

== ENCOUNTER → 2023-11-07 11:45 | Outpatient (BNV) | payer MEDICARE, MEDICAID, SELFPAY | PROVIDERS: PCP Internal Medicine; Visit Provider Anesthesiology | DX: M47.816 Spondylosis without myelopathy or radiculopathy, lumbar region (principal) | CPT/HCPCS: 64635; 64636 ==

== ENCOUNTER 2023-12-25 11:46 | Outpatient (AMB) | payer MEDICARE, MEDICAID, SELFPAY ==
--- NOTE | 2023-12-25 11:58 | MHC.OFFVIS ---
Intake Vital Signs 12/25/23 11:59 Height 5 ft 1 in Weight 157 lb 6 oz BMI 29.7 BP 126/86 Blood Pressure Location Lt brachial Position Sitting Respiration 16 Pulse 77 Pulse Source Pulse Oximeter Pulse Oximetry (%) 96 Oxygen Delivery Method Room Air Intake Visit Reasons: S/p B/l L3-L4-DRL5 RFA 11/07/23/ Confirm Intake Note: Patient comes in for post-op appointment. Reports pain 04/06. Allergies erythromycin base Adverse Reaction (Severe, Verified 12/25/23 11:58) hives, stomach pain HPI HPI Comments History of Present Illness Details Liza is back in my office after repeat of the bilateral radiofrequency ablation L3-L4 dorsal ramus L5 which was done on 11/07/2023. She reports only few days of pain relief after the procedure. Unlike the 1st time of 03/28/2023 which was effective for 5 months this radiofrequency ablation was not effective for her. She complains mostly on central pain across the lower back, I offered her to consider Nevro SCS. She will think about it. However I will tentatively schedule her for psychological evaluation. LEFT SI JOINT FUSION 12/15/21: Very good results for left-sided low back pain. PRIOR: Liza is a pleasant 55 year old female who presents to the office with multiple pain generators. She states the pain started about ten years ago without any inciting events and has progressively worsens. She reports the pain in her neck is mostly towards the left with tightness throughout her bilateral trapezius muscles and occasionally has radiation down the left arm to her elbow with associated numbness. She notes dropping objects more easily with the left hand.Her lumbar pain radiates across the low back and laterally down her left leg to her ankle with associated numbness throughout her left funes as well as occasional weakness of the LLE. She states the numbness of her left funes has been present since having COVID a few months ago. She denies any saddle anesthesia or bowel/bladder dysfunction. She reports a history of neuropathy of bilateral feet with burning, tingling and numbness. Denies any history of DM. Previously she has tried physical therapy but felt her symptoms were unchanged. She has also tried a TENS unit, chiropractic manipulation and acupuncture but the relief was only temporary. Denies any previous cervical/lumbar surgery. She last had imaging of her cervical and lumbar spine in 2020, but these reports are not available today. We have copies of a cervical and lumbar MRI from 2020, which are both scanned into her chart. She reports seeing a surgeon last year who recommended against surgery, as her pain may worsen. [facility] Medical History Carpal tunnel syndrome Major depressive disorder, recurrent severe without psychotic features Hx of breast cancer Arthritis Low back pain Insomnia Elevated cholesterol HTN (hypertension) Depression Anxiety Hypothyroid Asthma Sacroiliitis Surgical History History of lumpectomy of right breast Hx of hysterectomy Social History Patient Tobacco Use Status: Never used Tobacco Current occupational status: disabled Current occupation: left hand / Review of Systems Const All systems reviewed & are unremarkable except as noted in HPI and below Physical Exam Vital Signs: Last Vital Signs Pulse 77 12/25/23 11:59 Resp 16 12/25/23 11:59 BP 126/86 12/25/23 11:59 Pulse Ox 96 12/25/23 11:59 Oxygen Delivery Method Room Air 12/25/23 11:59 BMI result Body Mass Index 29.7 Const General: cooperative, healthy appearing, no acute distress, alert and well groomed Nutritional Appearance: overweight Orientation/consciousness: patient oriented x3 Limitations: no limitations HEENT Head: Yes normal to inspection, Yes normocephalic and Yes atraumatic Ears: hearing grossly normal bilaterally Eyes General: appearance normal, both eyes and all related structures Eyelids: Yes eyelids normal Sclerae: sclerae normal EOM: EOMs intact bilaterally Neck Neck: Yes normal visual inspection and Yes full ROM Chest Chest palpation & inspection: normal inspection of the chest Resp Effort & Inspection: normal respiratory effort, able to speak in complete sentences, no audible wheezes, no cough and symmetric chest movement Cardio Jugular venous distension: no JVD Palpation: other (no appreciable rhythmic abnormalities) Bruits: no carotid bruits Peripheral pulses: radial pulses present, posterior tibial pulses present and dorsalis pedis present GI Inspection: Yes normal to inspection and No distended Palpation (GI): Soft to palpation General: Yes no CVA tenderness Back/Spine/Pelvis Other: Patient able to walk on heels and tip toes without difficulty and without assisting devices. Can flex forward to 75-80 degrees and extend to 10 degrees before experiencing moderate to severe lumbar pain. Demonstrates 5/5 strength of quadriceps bilaterally as well as flexion/dorsiflexion of bilateral feet against resistance. 2+ pedal pulses bilaterally. Straight leg rise with dorsiflexion negative bilaterally. Facet loading test positive bilaterally. Moderate tenderness in the projections of right SIJ. Laxmi signs, Stinchfield, Pravin?s and pelvic compression positive on the right and negative on the left.? Loading test is positive on the right. Arching back be backwards aggravates her pain in the lumbar spine Back: no CVA tenderness Sacroiliac joints: on the right tender to palpation Skin General skin exam: no rashes or lesions noted Neuro General: patient oriented x3, gait normal and moves all extremities Gait exam (Neuro): Normal gait present Motor exam (neuro): 5/5 motor strength present throughout Extrem General: Yes capillary refill normal, Yes no clubbing, cyanosis or edema and Yes no calf tenderness Psych Appearance: grossly normal Mental Status: mental status grossly normal Speech and movement: Normal speech and movement present Affect: normal affect Attitude: cooperative Thought process: Normal thought process present Thought content: Normal thought content present Insight: Good insight present (Psych) Judgement: Good judgement present (Psych) Assessment & Plan Assessment & Plan (1) Myofascial pain: Code(s): M79.18 - Myalgia, other site (2) Sacroiliitis: Code(s): M46.1 - Sacroiliitis, not elsewhere classified (3) Lumbar spondylosis: Code(s): M47.816 - Spondylosis without myelopathy or radiculopathy, lumbar region Plan: complications. (4) Left lumbar radiculopathy: Code(s): M54.16 - Radiculopathy, lumbar region Plan: (5) Cervicalgia: Code(s): M54.2 - Cervicalgia Plan: (6) Spondylosis of lumbar region without myelopathy or radiculopathy: Code(s): M47.816 - Spondylosis without myelopathy or radiculopathy, lumbar region Plan: Second RFA resulted in no pain relief more than few days. First RFA was effective for 5 months. Previously patient had left SI joint fusion. She also appears to have right SI joint symptoms however those were not addressed with the fusion. Nevro SCS trial will be considered by the patient. Psychological evaluation will be tentatively scheduled. Plan Coding Level of Care Code Est Pt Level 3 (72487) Diagnoses Myofascial pain M79.18 Sacroiliitis M46.1 Lumbar spondylosis M47.816 Left lumbar radiculopathy M54.16 Cervicalgia M54.2 Spondylosis of lumbar region without myelopathy or radiculopathy M47.816
[2023-12-25 11:59] VITALS: BP 126/86; PULSE 77; RESP 16; O2SAT 96; BMI 29.7
== END 2023-12-25 12:04 | disposition home or self-care (01) ==
PROVIDERS: PCP Internal Medicine; Visit Provider Anesthesiology
DX: M79.18 Myalgia, other site (principal); M46.1 Sacroiliitis, not elsewhere classified; M47.816 Spondylosis without myelopathy or radiculopathy, lumbar region; M54.16 Radiculopathy, lumbar region; M54.2 Cervicalgia
CPT/HCPCS: 99213

== ENCOUNTER → 2023-12-25 11:46 | Outpatient (BNVA) | payer MEDICARE, MEDICAID, SELFPAY | PROVIDERS: PCP Internal Medicine; Visit Provider Anesthesiology | DX: M79.18 Myalgia, other site (principal); M46.1 Sacroiliitis, not elsewhere classified; M47.816 Spondylosis without myelopathy or radiculopathy, lumbar region; M54.16 Radiculopathy, lumbar region; M54.2 Cervicalgia | CPT/HCPCS: 99212 ==